=== PATIENT | male | born 1965 | race African-American/Black ===

== ENCOUNTER 2016-11-06 12:31 | Inpatient (IN) | payer MEDICAID, OTHER ==
[2016-11-06] VITALS (21 sets, daily range): BP systolic 98–154; BP diastolic 35–119
[~2016-11-06] VITALS: Ht 182.9 cm; Wt 86.2 kg
--- NOTE | 2016-11-06 12:45 | NUR ---
PATIENT BIB RA D/T WEAKNESS AND CONGESTION. PATIENT IS A/OX 0 AT BASELINE. 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 BREATHING ON NON REBREATHER MASK, 15L. SAFETY AND COMFORT MEASURES IN PLACE. AWAITING MD ORDERS.
--- NOTE | 2016-11-06 13:30 | NUR ---
IV ACCESS STARTED, BLOOD DRAWN FOR LABS, SENT.
[2016-11-06 13:35] LABS: BASOPHILS # (AUTO) 0.1 /CMM (0.0-0.2); BASOPHILS % (AUTO) 0.7 % (0.0-2.0); EOSINOPHILS # (AUTO) 0.1 /CMM (0.0-0.7); HEMATOCRIT 53 % (39-51); HEMOGLOBIN 16.8 g/dL (13.5-17.5); LYMPHOCYTES # (AUTO) 3.1 /CMM (0.8-4.8); LYMPHOCYTES % (AUTO) 32.7 % (20.0-44.0); MEAN CORPUSCULAR HEMOGLOBIN 29 PG (26.0-33.0); MEAN CORPUSCULAR HGB CONC 32 g/dl (31.0-36.0); MEAN CORPUSCULAR VOLUME 92 fL (80-96); MONOCYTES # (AUTO) 0.9 /CMM (0.1-1.30); MONOCYTES % (AUTO) 9.8 % (2.0-12.0); NEUTROPHILS # (AUTO) 5.3 /CMM (1.8-8.9); NEUTROPHILS % (AUTO) 55.8 % (43.0-81.0); PLATELET COUNT (AUTO) 178 /CMM (150-450); RDW COEFFICIENT OF VARIATION 13.8 (11.5-15.0); WHITE BLOOD COUNT (AUTO) 9.5 K/uL (4.3-11.0)
[2016-11-06 13:49] LABS: CALCIUM, SERUM 8.6 mg/dL (8.5-10.1); POTASSIUM 4.4 mmol/L (3.5-5.1)
--- NOTE | 2016-11-06 13:52 | NUR ---
CALLED DR FLORES OFFICE SPOKE WITH DR MADELINE WAS PAGED.
[2016-11-06 13:56] LABS: TROPONIN I 0.094 ng/mL (0.00-0.056)
[2016-11-06 14:00] LABS: INR 1.13 (0.87-1.13); PROTHROMBIN TIME 12.2 SECS (9.5-12.7)
[2016-11-06] MEDS ORDERED: ASPIRIN 300 MG/SUPP.RECT RC ONE ×2 (14:30→14:44)
--- NOTE | 2016-11-06 14:45 | NUR ---
NON-REBREATHER TAKEN OFF AND 5L O2 APPLIED VIA NC. WILL CONTINUE TO MONITOR.
--- NOTE | 2016-11-06 14:58 | NUR ---
PATIENT TAKEN TO CT
--- NOTE | 2016-11-06 15:06 | NUR ---
PATIENT RETURNED FROM CT. REMAINS STABLE.
--- NOTE | 2016-11-06 15:20 | NUR ---
CALLED DR GALLEGOS'S OFFICE, WAS PAGED.
--- NOTE | 2016-11-06 15:21 | NUR ---
RT AT BEDSIDE FOR ABG'S
[2016-11-06 15:26] LABS: ABG BASE EXCESS 2.3 mmol/L; ABG OXYGEN SATURATION 97.4 % (92.0-98.5); ABG PCO2 70.9 mmHg (35.0-45.0); ABG PH 7.273 (7.350-7.450); ABG PO2 102.9 mmHg (75.0-100.0); AaDO2 100.8 mmHg; COHb 0.6 % (0.5-1.5); MetHb 0.6 % (0.0-1.5); O2Hb 96.2 % (94.0-97.0); SITE, ABG Right Radial; VENT MODE, BG NASAL CANNULA
--- NOTE | 2016-11-06 15:29 | NUR ---
DR BERMUDEZ ON THE PHONE WITH DR GALLEGOS.
--- NOTE | 2016-11-06 15:35 | NUR ---
RT ABG RESULTS SHOWN TO DR. BERMUDEZ. PATIENT PLACED ON BiPAP WITH FOLLOWING SETTINGS: 20/5, BUR 20, 30%. PT SUCTIONED STOMA SITE SMALL AMOUNTS OF THICK, WHITE/ANSARI SECRETIONS. SpO2 94%, HR 84. AMBU BAG AT HEAD OF BED. PT REMAINS STABLE. WILL CONTINUE TO MONITOR THE PATIENT FOR ANY CHANGE OF CONDITION. Addendum: 11/06/16 at 1843 by KELTON MCCORMICK RT Amended: Links added.
--- NOTE | 2016-11-06 15:55 | NUR ---
PATIENT PLACED ON BIPAP AT THIS TIME, SETTING 20/5. O2 30%, RR 20. PATIENT ALSO PULLED OUT IV ON LEFT HAND. NEW IV STARTED ON RIGHT HAND, 20 G.
[2016-11-06] MEDS ORDERED: RANI150T12 PO ×2 (17:26)
[2016-11-06] MEDS ORDERED: OMEP20CA10 PO (17:26)
[2016-11-06] MEDS ORDERED: TYL2T PO (17:26)
[2016-11-06] MEDS ORDERED: BROM1.7D9 EACHEYE (17:26)
[2016-11-06] MEDS ORDERED: ACET325T53 PO (17:26)
[2016-11-06] MEDS ORDERED: LISI10TA59 PO (17:26)
[2016-11-06] MEDS ORDERED: CHOL200026 PO (17:26)
[2016-11-06] MEDS ORDERED: PRAV20TA PO (17:26)
[2016-11-06] MEDS ORDERED: ASPI81TA2 PO (17:26)
[2016-11-06] MEDS ORDERED: DOCU250C75 PO (17:26)
--- NOTE | 2016-11-06 17:27 | NUR ---
2ND IV INSERTED ON LEFT 4TH FINGER, 20 G.
[2016-11-06 17:29] LABS: ABG BASE EXCESS 0.1 mmol/L; ABG OXYGEN SATURATION 95.6 % (92.0-98.5); ABG PCO2 54.3 mmHg (35.0-45.0); ABG PH 7.322 (7.350-7.450); ABG PO2 82.9 mmHg (75.0-100.0); AaDO2 67.2 mmHg; COHb 0.6 % (0.5-1.5); MetHb 0.5 % (0.0-1.5); O2Hb 94.5 % (94.0-97.0); SITE, ABG Right Radial
--- NOTE | 2016-11-06 17:47 | NUR ---
ICU/RN- ADMITTED THIS 51 Y/O MALE FROM ER PER ACLS PROTOCOL. ROUTINE ICU ADMISSION CARE.NURSING FOCUS:ALTERED CARDIAC TISSUE PERFUSION AND ALTERED RESPIRATORY STATUS R/T DIAGNOSIS. PT. AWAKE, NON INTERACTIVE. IMMEDIATELY WAS PLACED ON BIPAP BY RT.
--- NOTE | 2016-11-06 18:40 | NUR ---
ICU/RN- DR. GALLEGOS NOTIFIED OF PT. ADMISSION W/ PHONE ORDERS. NOTED.
[2016-11-06] MEDS ORDERED: IPRATROPIUM NEB FS 0.5 MG/2.5 ML AMPUL.NEB NEB PRN (19:30)
[2016-11-06] MEDS ORDERED: ALBUTEROL FS 2.5 MG/0.5 ML VIAL.NEB NEB SCH ×2 (19:30)
--- NOTE | 2016-11-06 20:00 | NUR ---
ICU/RN- CONTINUE TO ASSUME CARE OF THIS PT. ON BIPAP, SATS.-100%. EKG SR, NO S/S OF DISTRESS OR PAIN USING FLACC PAIN SCALE.
[2016-11-06] MEDS: IPRATROPIUM NEB FS 0.5 MG/2.5 ML AMPUL.NEB NEB SCH ×2 (20:08→23:34)
[2016-11-06] MEDS: ALBUTEROL FS 2.5 MG/0.5 ML VIAL.NEB NEB SCH (20:08)
[2016-11-06] MEDS: IV 1/2NS 1000 ML 1,000 ML IV PRN (20:20)
[2016-11-06] MEDS: CEFTRIAXONE 1 G in IV D5W 50 ML IV SCH (20:21)
[2016-11-06] MEDS: AZITHROMYCIN 500 MG in IV D5W 250 ML IV SCH (21:02)
[2016-11-06] MEDS: ENOXAPARIN SODIUM 40 MG/0.4 ML DISP.SYRIN SQ SCH (21:12)
[2016-11-06] MEDS: ATORVASTATIN 10 MG TABLET PO SCH (22:00)
[2016-11-06] MEDS ORDERED: PRAVASTATIN SODIUM 20 MG TABLET PO SCH (22:00)
--- NOTE | 2016-11-06 22:07 | NUR ---
ICU/RN- SCHEDULED DOSE OF LIPITOR NOT GIVEN, PT. UNABLE TO SWALLOW, HEAD OF BED AT 60 DEGREES AT ALL TIMES,ASPIRATION PRECAUTIONS IN EFFECT. KEPT NPO FOR NOW. WILL NOTIFY MD IN AM.
[2016-11-06] MEDS ORDERED: PANTOPRAZOLE 40 MG VIAL ONE (22:20)
[2016-11-06] MEDS: PANTOPRAZOLE 40 MG VIAL IV SCH (22:21)
--- NOTE | 2016-11-06 22:30 | NUR ---
ICU/RN- REPORT GIVEN TO SALMA FITZPATRICK.
[2016-11-07] VITALS (53 sets, daily range): BP systolic 89–166; BP diastolic 37–104
[2016-11-07] MEDS: IPRATROPIUM NEB FS 0.5 MG/2.5 ML AMPUL.NEB NEB SCH ×6 (03:13→22:30)
[2016-11-07 04:57] LABS: EOSINOPHILS # (AUTO) 0.1 /CMM (0.0-0.7); EOSINOPHILS % (AUTO) 0.8 % (0.0-6.0); HEMATOCRIT 58 % (39-51); HEMOGLOBIN 18.1 g/dL (13.5-17.5); LYMPHOCYTES # (AUTO) 2.6 /CMM (0.8-4.8); LYMPHOCYTES % (AUTO) 42.1 % (20.0-44.0); MEAN CORPUSCULAR HEMOGLOBIN 29 PG (26.0-33.0); MEAN CORPUSCULAR HGB CONC 31 g/dl (31.0-36.0); MEAN CORPUSCULAR VOLUME 92 fL (80-96); MONOCYTES # (AUTO) 0.7 /CMM (0.1-1.30); MONOCYTES % (AUTO) 11.2 % (2.0-12.0); NEUTROPHILS # (AUTO) 2.9 /CMM (1.8-8.9); NEUTROPHILS % (AUTO) 45.9 % (43.0-81.0); PLATELET COUNT (AUTO) 153 /CMM (150-450); RDW COEFFICIENT OF VARIATION 13.3 (11.5-15.0); RED BLOOD CELL COUNT(AUTO) 6.27 MIL/uL (4.5-6.0); WHITE BLOOD COUNT (AUTO) 6.3 K/uL (4.3-11.0)
[2016-11-07 05:07] LABS: CALCIUM, SERUM 8.9 mg/dL (8.5-10.1); POTASSIUM 4.7 mmol/L (3.5-5.1)
[2016-11-07 06:51] LABS: EOSINOPHILS % (MANUAL) 1 % (0-4); LYMPHOCYTES % (MANUAL) 44 % (16-48); MONOCYTES % (MANUAL) 13 % (0-11.0); NEUTROPHILS % (MANUAL) 42 (42-76)
--- NOTE | 2016-11-07 08:00 | NUR ---
ICU/RN INITIAL NOTES,AM RECEIVED REPORT FROM NIGHT NURSE. PT OPES EYES, FOLLOWS SIMPLE COMMANDS. ON BIPAP, SETTINGS PER MD. NO ACUTE DISTRESS NOTED AT THIS TIME. PT MAINTAINING 02 SAT >95%. PT ON TELE, SINUS. CURRENTLY NPO, NO GTUBE PER MD. PIV'S PATENT AND INTACT. NO S/S OF INFECTION OR INFILTRATION NOTED. IV FLUIDS INFUSING ORDERED. PT TURNED AND REPOSITIONED. ALL NEEDS WILL BE ATTENDED TO, BED IN LOW POSITION, SIDE RAILS UP, CALL LIGHT WITHIN REACH.
[2016-11-07] MEDS: ALBUTEROL FS 2.5 MG/0.5 ML VIAL.NEB NEB SCH ×4 (08:08→19:37)
[2016-11-07] MEDS: ASPIRIN 81 MG TAB.CHEW PO SCH (08:58)
--- NOTE | 2016-11-07 09:00 | NUR ---
ICU/RN: PT OFF BIPAP, ON 5LITERS NASAL CANULA TOLERATING WELL. WILL CONTINUE TO MONITOR
--- NOTE | 2016-11-07 13:00 | NUR ---
ICU/RN: AT BEDSIDE FOR ASSESSMENT. ABG ORDERED FOR PT OFF BIPAP. INFORMED MD OF COOLING MEASURES FOR TEMP OF 99.5. PER MD WE ARE NOT TO GIVE TYLENOL AT THIS TIME. WILL CONTINUE CARE.
[2016-11-07 13:06] LABS: ABG BASE EXCESS 5.3 mmol/L; ABG OXYGEN SATURATION 94.6 % (92.0-98.5); ABG PCO2 63.3 mmHg (35.0-45.0); ABG PH 7.343 (7.350-7.450); ABG PO2 77.6 mmHg (75.0-100.0); AaDO2 98.4 mmHg; COHb 1.3 % (0.5-1.5); MetHb 0.8 % (0.0-1.5); O2Hb 92.6 % (94.0-97.0); SITE, ABG Right Radial; VENT MODE, BG BIPAP 20/5
[2016-11-07 13:37] LABS: ABG BASE EXCESS 1.8 mmol/L; ABG OXYGEN SATURATION 96.1 % (92.0-98.5); ABG PH 7.296 (7.350-7.450); ABG PO2 88.6 mmHg (75.0-100.0); AaDO2 64.7 mmHg; COHb 1.2 % (0.5-1.5); MetHb 0.8 % (0.0-1.5); O2Hb 94.2 % (94.0-97.0); SITE, ABG Right Radial; VENT MODE, BG 3LPM VIA N/C
[2016-11-07] MEDS: IV 1/2NS 1000 ML 1,000 ML IV PRN (15:14)
--- NOTE | 2016-11-07 15:47 | NUR ---
BIPAP RESUMED POST ABG RESULTS Addendum: 11/07/16 at 1549 by YAZMIN PETIT RT Amended: Links added.
--- NOTE | 2016-11-07 16:00 | NUR ---
ICU/RN: PT PLACED BACK ON BIPAP WITH SETTINGS ORDERED PER MD. NO ACUTE DISTRESS. WILL CONTINUE TO MONITOR.
--- NOTE | 2016-11-07 18:28 | NUR ---
ICU/RN: ENDING NOTES,AM REPORT WILL BE ENDORSED TO NIGHT NURSE FOR CONTINUATION OF CARE. PT ON BIPAP, NO DISTRESS. SAFETY MEASURES TAKEN, BED IN LOW POSITION, SIDE RAILS UP, CALL LIGHT WITHIN REACH.
[2016-11-07] MEDS: CEFTRIAXONE 1 G in IV D5W 50 ML IV SCH (19:51)
--- NOTE | 2016-11-07 20:00 | NUR ---
CHASSIS INSPECTOR - NOTES - RECEIVED PT OPEN EYES, FOLLOWS SIMPLE COMMANDS. ON BIPAP, SETTINGS PER MD. NO ACUTE DISTRESS NOTED AT THIS TIME. PT MAINTAINING 02 SAT >95%. PT ON TELE, SINUS. CURRENTLY NPO, NO GTUBE PER MD. PIV'S PATENT AND INTACT. NO S/S OF INFECTION OR INFILTRATION NOTED. IV FLUIDS INFUSING ORDERED. PT TURNED AND REPOSITIONED. ALL NEEDS WILL BE ATTENDED TO, BED IN LOW POSITION, SIDE RAILS UP, CALL LIGHT WITHIN REACH.
--- NOTE | 2016-11-07 21:00 | NUR ---
agricultural equipment test engineer. report given to roya reynoso.
[2016-11-07] MEDS: AZITHROMYCIN 500 MG in IV D5W 250 ML IV SCH (21:16)
[2016-11-07] MEDS: ATORVASTATIN 10 MG TABLET PO SCH (21:17)
[2016-11-07] MEDS: ENOXAPARIN SODIUM 40 MG/0.4 ML DISP.SYRIN SQ SCH (21:17)
[2016-11-07] MEDS: PANTOPRAZOLE 40 MG VIAL IV SCH (22:29)
[2016-11-08] VITALS (41 sets, daily range): BP systolic 108–154; BP diastolic 60–99
[2016-11-08] MEDS: IPRATROPIUM NEB FS 0.5 MG/2.5 ML AMPUL.NEB NEB SCH ×6 (03:06→22:51)
--- NOTE | 2016-11-08 04:00 | NUR ---
BED BATH GIVEN, ALL LINENS CHANGED, NO BM, URINATED
--- NOTE | 2016-11-08 07:30 | NUR ---
PROCESS TANK TENDER RECEIVED PATIENT AWAKE ON BIPAP MAINTAINED ON BIPAP PER MD ORAL MEDICATION GIVEN, ASPIRATION PRECAUTION OBSERVED MONITORED ACCORDINGLY SEEN AND EXAMINED BY DR SUBRAMANIAN
[2016-11-08] MEDS: ALBUTEROL FS 2.5 MG/0.5 ML VIAL.NEB NEB SCH ×4 (07:52→19:51)
[2016-11-08] MEDS: ASPIRIN 81 MG TAB.CHEW PO SCH (09:23)
[2016-11-08] MEDS: IV 1/2NS 1000 ML 1,000 ML IV PRN (09:55)
[2016-11-08 11:50] LABS: ABG PCO2 60.4 mmHg (35.0-45.0); ABG PH 7.304 (7.350-7.450); ABG PO2 66.8 mmHg (75.0-100.0); AaDO2 76.1 mmHg; COHb 1.2 % (0.5-1.5); MetHb 0.7 % (0.0-1.5); O2Hb 90.3 % (94.0-97.0); SITE, ABG Right Radial; VENT MODE, BG BIPAP 20/5
[2016-11-08] MEDS: LACTOBACILLUS RHAMNOSUS GG 1 EACH CAP.SPRINK PO SCH (16:38)
[2016-11-08] MEDS: CEFTRIAXONE 1 G in IV D5W 50 ML IV SCH (18:54)
[2016-11-08] MEDS ORDERED: ALBUTEROL FS 2.5 MG/0.5 ML VIAL.NEB ONE (19:50)
[2016-11-08] MEDS: ATORVASTATIN 10 MG TABLET PO SCH (21:04)
[2016-11-08] MEDS: MUPIROCIN OINT 2% 22 GM TUBE SCH (21:04)
[2016-11-08] MEDS: AZITHROMYCIN 500 MG in IV D5W 250 ML IV SCH (21:04)
[2016-11-08] MEDS: ENOXAPARIN SODIUM 40 MG/0.4 ML DISP.SYRIN SQ SCH (21:05)
[2016-11-08] MEDS: PANTOPRAZOLE 40 MG VIAL IV SCH (22:59)
[2016-11-09] VITALS (30 sets, daily range): BP systolic 109–173; BP diastolic 43–123
--- NOTE | 2016-11-09 01:03 | NUR ---
RN:ICU: ATTEMPTED TO REMOVE LEFT ARM RESTRAINT BUT PATIENT BEGAN THRASHING ARM AROUND AND REMOVING BIPAP TUBING. PT REEDUCATED WITH OUT SUCCESS. LEFT ARM SOFT WRIST RESTRAINT REAPPLIED. WILL CONTINUE TO MONITOR CLOSELY.
[2016-11-09] MEDS: IPRATROPIUM NEB FS 0.5 MG/2.5 ML AMPUL.NEB NEB SCH ×6 (03:15→23:20)
[2016-11-09] MEDS: IV 1/2NS 1000 ML 1,000 ML IV PRN ×2 (03:33→18:26)
[2016-11-09] MEDS: ALBUTEROL FS 2.5 MG/0.5 ML VIAL.NEB NEB SCH ×4 (07:30→19:48)
--- NOTE | 2016-11-09 07:35 | NUR ---
SEWER PIPE OFFBEARER NOTE RECEIVED PT OPEN EYES, ON BIPAP, SETTINGS PER MD. NO ACUTE DISTRESS NOTED AT THIS TIME. PT MAINTAINING 02 SAT >95%. PT ON TELE,SR HR 75. CURRENTLY NPO, NO GTUBE PER MD. RT UA MID LINE AND RT HAND AND LT HAND IV HEPLOCK PATENT AND INTACT. NO S/S OF INFECTION OR INFILTRATION NOTED. IV FLUIDS INFUSING ORDERED. PT TURNED AND REPOSITIONED. ALL NEEDS WILL BE ATTENDED TO, BED IN LOWEST AND LOCKED POSITION, SIDE RAILS UP, CALL LIGHT WITHIN REACH. WITH SOFT RESTRAIN ORDERED ON LT HAND ORDERED TO PREVENT SELF INJURY AND POOLING ALL LINES, RT AT BEDSIDE DOING ABG, WILL CONT TO MONITOR CLOSELY
[2016-11-09 08:36] LABS: ABG BASE EXCESS 1.8 mmol/L; ABG OXYGEN SATURATION 93.8 % (92.0-98.5); ABG PCO2 51.4 mmHg (35.0-45.0); ABG PH 7.362 (7.350-7.450); ABG PO2 69.6 mmHg (75.0-100.0); AaDO2 83.9 mmHg; COHb 1.1 % (0.5-1.5); MetHb 0.9 % (0.0-1.5); O2Hb 91.9 % (94.0-97.0); SITE, ABG Left Radial; VENT MODE, BG IPAP 20/EPAP 5
[2016-11-09] MEDS: LACTOBACILLUS RHAMNOSUS GG 1 EACH CAP.SPRINK PO SCH ×2 (09:00→17:11)
[2016-11-09] MEDS: ASPIRIN 81 MG TAB.CHEW PO SCH (09:00)
[2016-11-09] MEDS: MUPIROCIN OINT 2% 22 GM TUBE SCH (09:11)
--- NOTE | 2016-11-09 09:40 | NUR ---
REHABILITATION SERVICES AIDE NOTE ABG DONE , HOLD ASA AND OTHER PO MEDS AT THIS TIME ON BIPAP , PER DR GALLEGOS NOTES OK TO HOLD PO MEDS AT THIS TIME , WILL CONT TO MONITOR CLOSELY
--- NOTE | 2016-11-09 11:25 | NUR ---
SOCK KNITTER NOTE SEEN BY DR SUBRAMANIAN YOUTH LIAISON OFFICER AWARE OF ABG RESULT , STATED TO CONT TO MONITOR CLOSELY ,SIGHTLY IMPROVING .
--- NOTE | 2016-11-09 13:09 | NUR ---
placed on 3 lpm o2 flow via nasal cannula per md order Addendum: 11/09/16 at 1309 by ANTOLIN LEE RT Amended: Links added.
--- NOTE | 2016-11-09 13:27 | NUR ---
SAMPLE PASTER NOTE SEEN BY RT ,CHANGED TO 3 L NC NO SOB AT THIS TIME ,SAT 98% , WILL CONT TO MONITOR CLOSELY .DR GALLEGOS AT BEDSIDE, AWARE OF PATIENT CONDITION ,AWAITING FOR ENT IN AM
[2016-11-09] MEDS ORDERED: FIBERSOURCE HN 1,000 ML BOTTLE GT PRN (16:30)
[2016-11-09 16:42] LABS: ABG BASE EXCESS -0.2 mmol/L; ABG OXYGEN SATURATION 97.6 % (92.0-98.5); ABG PH 7.377 (7.350-7.450); ABG PO2 103.8 mmHg (75.0-100.0); AaDO2 51.2 mmHg; COHb 1.1 % (0.5-1.5); MetHb 0.8 % (0.0-1.5); O2Hb 95.7 % (94.0-97.0); SITE, ABG Right Radial; VENT MODE, BG NASAL CANNULA
--- NOTE | 2016-11-09 16:59 | NUR ---
STRATIGRAPHY TEACHER NOTE NG TUBE PLACED ORDERED ON LT NOSTRIL, WILL START G TUBE FEEDING AND MEDS ORDERED BY DR GALLEGOS
--- NOTE | 2016-11-09 17:16 | NUR ---
CRUISE COUNSELOR NOTE MEDS START TO GIVE VIA B G TUB PLACEMENT , PLACEMENT VERIFIED BY 2 NURSES, WITH RUSHING AIR UPON AUSCULTATION , KEEP HOB ELEVATED AT ALL TIME
--- NOTE | 2016-11-09 18:29 | NUR ---
BLOOD BANK CALENDAR CONTROL CLERK NOTE PER RT ON O2 VIA NC 2L SAT 98% , NO SOB NOTED, WILL CONT TO MONITOR CLOSELY
--- NOTE | 2016-11-09 20:00 | NUR ---
Received patient awake non verbal not following commands with Left soft wrist restraints in place to prevent pulling out tubes and IVF.SR per monitor.VS stable.With O2 2L NC in progress.No distress noted.Respiration even and unlabored.SPO2 100%.Tube feeding in progress via Left nares NGT. Placement verified.No residual noted.HOB elevated.IVF infusing to JESUSITA Midline.Site intact.Turned and repositioned.Contact isolation precaution for MRSA nares maintained.
[2016-11-09] MEDS: CEFTRIAXONE 1 G in IV D5W 50 ML IV SCH (20:06)
[2016-11-09] MEDS: AZITHROMYCIN 250 MG TABLET PO SCH (21:13)
[2016-11-09] MEDS: ENOXAPARIN SODIUM 40 MG/0.4 ML DISP.SYRIN SQ SCH (21:14)
[2016-11-09] MEDS: PANTOPRAZOLE 40 MG VIAL IV SCH (22:04)
[2016-11-09] MEDS: ATORVASTATIN 10 MG TABLET PO SCH (22:04)
[2016-11-10] VITALS (26 sets, daily range): BP systolic 53–164; BP diastolic 28–101
[2016-11-10] MEDS: IPRATROPIUM NEB FS 0.5 MG/2.5 ML AMPUL.NEB NEB SCH ×6 (03:04→23:33)
--- NOTE | 2016-11-10 03:19 | NUR ---
RT PT CURRENTLY ON 2L NC MAINTAINING GOOD SATURATIONS. BIPAP ON STAND BY. PT SHOWS NO SINGS OF RESP DISTRESS OR SOB. WILL CONTINUE TO MONITOR.
--- NOTE | 2016-11-10 06:35 | NUR ---
Patient resting.VS stable.AM care done.No significant change noted during the shift. Patient tolerating O2 NC at 2L sating 96%-100%.Tolerating feeding.Turned and repositioned.
[2016-11-10] MEDS: ALBUTEROL FS 2.5 MG/0.5 ML VIAL.NEB NEB SCH ×4 (07:35→19:40)
--- NOTE | 2016-11-10 07:37 | NUR ---
INITIAL COMPUTER SECURITY COORDINATOR NOTE RCVD PT WITH EYES OPEN, ABLE TO FOLLOW SIMPLE COMMANDS, SR ON TELE. TOLERATING O2 VIA NC. DRESSING OBSERVED OVER STOMA AREA. LEFT WRIST RESTRAINT IN PLACE. CIRCULATION CHECKS PERFORMED. NG TUBE LEFT NARE, PLACEMENT VERIFIED BY AUSCULTATION/ASPIRATION. TOLERATING TUBE FEEDING RATE. 10ML RESIDUAL OBSERVED. IV SITES C/D/I/PATENT. NO S/O INFILTRATION OR PHLEBITIS OBSERVED. IVF INFUSING. WILL CONTINUE TO MONITOR PT FOR SAFETY AND COMFORT. CALL LIGHT WITHIN REACH. BED IN LOW AND LOCKED POSITION.
[2016-11-10 10:50] LABS: ABG BASE EXCESS 3.5 mmol/L; ABG OXYGEN SATURATION 91.2 % (92.0-98.5); ABG PCO2 42.8 mmHg (35.0-45.0); ABG PH 7.437 (7.350-7.450); ABG PO2 56.7 mmHg (75.0-100.0); AaDO2 41.8 mmHg; COHb 1.5 % (0.5-1.5); MetHb 0.6 % (0.0-1.5); O2Hb 89.3 % (94.0-97.0); SITE, ABG Right Radial
[2016-11-10] MEDS: IV 1/2NS 1000 ML 1,000 ML IV PRN (11:28)
[2016-11-10] MEDS: ASPIRIN 81 MG TAB.CHEW PO SCH (11:29)
[2016-11-10] MEDS: LACTOBACILLUS RHAMNOSUS GG 1 EACH CAP.SPRINK PO SCH ×2 (11:29→17:00)
--- NOTE | 2016-11-10 14:40 | NUR ---
GAS METER INSTALLER NOTE DR. GALLEGOS AT BEDSIDE INFORMED HIM OF DIETITIAN RECOMMENDATION TO INCREASE TUBE FEEDING RATE TO 70 ML/HR AND ADD MVT, VIT C TO PT'S MED REGIMEN. AGREES WITH RECOMMENDATION TO INCREASE TUBE FEEDING RATE, BUT DISAGREES TO ADD MVT AND VITC FOR THIS PT.
[2016-11-10] MEDS: FIBERSOURCE HN 1,000 ML BOTTLE GT PRN (17:39)
--- NOTE | 2016-11-10 18:14 | NUR ---
ENDING BLOW UP OPERATOR NOTE PT REMAINS STABLE, SHOWING NO S/O DISTRESS OR PAIN. THICK SECRETIONS NOTED OVER STOMA AREA, SR ON TELE. JESUSITA MIDLINE C/D/I/PATENT. NO S/O INFILTRATION/PHLEBITIS OBSERVED. IVF INFUSING. TUBE FEEDING RATE INCREASED TO 50ML/HR, RESIDUAL OF 45 ML OBTAINED. HOB ELEVATED. LEFT WRIST RESTRAINT REMAINS IN PLACE. PT'S CARE WILL BE ENDORSED TO MOTHER SUPERIOR RN FOR CONTINUITY OF CARE. BED IN LOW AND LOCKED POSITION.
--- NOTE | 2016-11-10 18:14 | NUR ---
TELEPHONE BETTING CLERK NOTE PER PHARMACY NO CULTURELLE IN STOCK, UNABLE TO ADMINISTER MEDICATION.
[2016-11-10] MEDS ORDERED: Z GUARD REMEDY 2 OZ OINT TP PRN (19:00)
--- NOTE | 2016-11-10 20:00 | NUR ---
received pt from day shift, alert, follows simple commands at times, SR, RA, lungs partially congested, some non pitting edema BL feet, NG to feeding, no residual, diaper on, L hand restraint, v/s stable, no pain, pt turned and repositioned.
[2016-11-10] MEDS: CEFTRIAXONE 1 G in IV D5W 50 ML IV SCH (20:41)
[2016-11-10] MEDS: PANTOPRAZOLE 40 MG VIAL IV SCH (21:10)
[2016-11-10] MEDS: ATORVASTATIN 10 MG TABLET PO SCH (21:10)
[2016-11-10] MEDS: AZITHROMYCIN 250 MG TABLET PO SCH (21:11)
[2016-11-10] MEDS: ENOXAPARIN SODIUM 40 MG/0.4 ML DISP.SYRIN SQ SCH (21:14)
[2016-11-11] VITALS (25 sets, daily range): BP systolic 56–154; BP diastolic 20–107
--- NOTE | 2016-11-11 00:44 | NUR ---
pt is resting in the bed, v/s stable, no pain, pt turned and repositioned q2hrs.
[2016-11-11] MEDS: IV 1/2NS 1000 ML 1,000 ML IV PRN (03:30)
[2016-11-11] MEDS: IPRATROPIUM NEB FS 0.5 MG/2.5 ML AMPUL.NEB NEB SCH ×6 (04:00→23:07)
--- NOTE | 2016-11-11 04:37 | NUR ---
pt is resting in the bed, no acute distress overnight, v/s stable, no pain, pt cleaned, changed and repositioned q2hrs.
[2016-11-11] MEDS: ALBUTEROL FS 2.5 MG/0.5 ML VIAL.NEB NEB SCH ×4 (07:35→19:55)
--- NOTE | 2016-11-11 07:37 | NUR ---
INITIAL BOTANY TECHNICIAN NOTE RCVD PT AWAKE AND ALERT TO SELF, SHOWING NO S/O DISTRESS OR C/O PAIN AT THIS TIME. SR ON TELE WITH OCCASIONAL PACs. STOMA REMAINS OPEN WITH COPIOUS THICK SECRETIONS. VOIDING TO DIAPER. LEFT WRIST RESTRAINT IN PLACE, CIRCULATION CHECKS PERFORMED. JESUSITA MIDLINE C/D/I/PATENT. NO S/O INFILTRATION/PHLEBITIS OBSERVED. IVF INFUSING.NG TUBE PLACEMENT VERIFIED BY AUSCULTATION/ASPIRATION, TOLERATING ORDERED TUBE FEEDING RATE INCREASED TO GOAL OF 70ML/HR THIS AM. NO RESIDUAL OBTAINED. WILL CONTINUE TO MONITOR PT FOR SAFETY AND COMFORT. CALL LIGHT WITHIN REACH. BED IN LOW AND LOCKED POSITION.
--- NOTE | 2016-11-11 08:42 | NUR ---
FLIGHT TEST MECHANIC RN CALLED DR. JULIEN OFFICE. RN SPOKE TO LUDWIG. RN INFORMED LUDWIG ABOUT THE NEW CONSULT FOR DR. HOROWITZ FOR TRACH PLACEMENT. RN INFORMED LUDWIG THAT PATIENT'S STOMA IS OPEN AND PATIENT IS CURRENTLY ON ROOM AIR. OFFICE NUMBER: [phone].
[2016-11-11] MEDS: LACTOBACILLUS RHAMNOSUS GG 1 EACH CAP.SPRINK PO SCH ×2 (09:00→17:43)
[2016-11-11] MEDS: ASPIRIN 81 MG TAB.CHEW PO SCH (09:21)
--- NOTE | 2016-11-11 09:23 | NUR ---
MAT PUNCHER NOTE NO CULTURELLE AVAILABLE TO ADMINISTER. PHARMACY AWARE.
--- NOTE | 2016-11-11 11:16 | NUR ---
WOUND CARE CONSULT PATIENT SEEN AND SKIN INTEGRITY ASSESSMENT DONE. PATIENT WITH LAVELL AT 11. PATIENT ON ISOFLEX ASIA SPECIALTY BED FOR SKIN MANAGEMENT. PATIENT PRESENTS WITH SEVERELY DRY SKIN TO FEET AND HEELS, RECOMMEND ATRACTAIN CREAM DAILY. PATIENT PRESENTS WITH STAGE 3 PRESSURE ULCER TO THE RIGHT LATERAL FOOT. TREATMENT PLAN DISCUSSED WITH MD AND MD IN AGREEMENT. CONTINUE USE OF Z GUARD FOR SKIN MANAGEMENT AND MOISTURE MANAGEMENT. ALL DISCUSSED WITH NURSING AT THE BEDSIDE. ALL SKIN MANAGEMENT AND PREVENTION MEASURES NOTED TO BE IN PLACE, MD IN AGREEMENT WITH PLAN OF CARE. Addendum: 11/11/16 at 1119 by KATJA LAGUERRE WNDNU Amended: Links added.
[2016-11-11] MEDS ORDERED: HYDROGEL DRESSING 90 GM TUBE TP PRN (11:30)
--- NOTE | 2016-11-11 13:22 | NUR ---
CABINET WORKER NOTE PT'S LEFT HAND GOT LOOSE, PT WAS ABLE TO PULL NG TUBE. TUBE WAS PUSHED BACK IN PLACE BY SALMA NATARAJAN. PLACEMENT VERIFIED BY CHEST XRAY. ONCE RESULTS WERE POSTED. TUBE FEEDING WAS RESUMED.
[2016-11-11] MEDS: HYDROGEL DRESSING 90 GM TUBE TP SCH (14:20)
[2016-11-11] MEDS: UREA 10% -AHA 4% CREAM 57 GM TUBE TP SCH (14:20)
[2016-11-11] MEDS: FIBERSOURCE HN 1,000 ML BOTTLE GT PRN (17:51)
--- NOTE | 2016-11-11 19:11 | NUR ---
ENDING NET MANAGER NOTE PT REMAINS STABLE SHOWING NO S/O DISTRESS. PER ROSA ISELA, RETORT OPERATOR DR. HOROWITZ WILL COME CANNULATE PT THIS EVENING. REQUESTED SUPPLIES AT BEDSIDE. DR. GALLEGOS CAME TO ASSESS PT RECOMMENDED TO D/C IVF, AND ORDERED LABS FOR THE AM. ORDERS ENTERED. HE WANTS PT TO BE EVALUATED BY GRETCHEN ARREGUIN. CHANNEL BUSINESS MANAGERCHARGE OPERATOR PLACED. PT REMOVED NGTUBE AGAIN. NGTUBE WAS PLACED BACK AND PLACEMENT WAS CHECKED BY 2RNs AT BEDSIDE. PT'S CARE WILL BE ENDORSED TO SPECIAL NEEDS LIBRARIAN RN FOR CONTINUITY OF CARE. BED IN LOW AND LOCKED POSITION.
--- NOTE | 2016-11-11 19:47 | NUR ---
HUMAN RESOURCE ADVISOR, RECEIVED THE PT REST ON THE BED. AWAKE, ALERT. NONVERBAL. MORE SECRETION COMING FROM OLD TRACH STOMA . PT ON ROOM AIR. RT NARE NGT INTACT. FOBER SOURCE 70ML/H. RT UPPER ARM MID LINE. TKO RUNNING, HOB ELEVATED. WILL CONTINUE TO MONITOR VITALS.
--- NOTE | 2016-11-11 19:51 | NUR ---
SENIOR MARKETING MANAGER. DR HOROWITZ AT BED SIDE PLACED NEW TRACH VIA OLD STOMA. DURING PLACEMENT NO COMPLICATION NOTED. PORTEX#9, OXYGEN T PICE 28%, 5L./H, WILL CONTINUE TO MONITOR VITALS.
--- NOTE | 2016-11-11 20:31 | NUR ---
@1935 DR HOROWITZ INSERTED PORTEX 7 TRACH ON PT IN AN OLD OPEN STOMA. PLACED ON CA 28%. SX'D FOR MOD AMT OF THICK YELLOW/RED SECRETIONS.
[2016-11-11] MEDS: CEFTRIAXONE 1 G in IV D5W 50 ML IV SCH (20:44)
--- NOTE | 2016-11-11 21:30 | NUR ---
PREFABRICATOR INITIAL NOTE RECEIVED REPORT FROM SUSY MARSH. PT IN BED. A/O NON VERBAL, FOLLOWS COMMANDS. LEFT ARM RESTRAINED FOR SAFETY. DR RYAN PLACED A PORTEX 9 IN STOMA, TPIECE 5L 28%. LEFT NARE NGT INTACT, NO RESIDUAL. LUNG SOUNDS RHONCHI. BOWEL SOUNDS PRESENT. RIGHT UPPER ARM MIDLINE INTACT. BED IN LOW LOCKED POSITION. WILL CONTINUE TO MONITOR.
[2016-11-11] MEDS: ATORVASTATIN 10 MG TABLET PO SCH (21:33)
[2016-11-11] MEDS: PANTOPRAZOLE 40 MG VIAL IV SCH (21:33)
[2016-11-11] MEDS: ENOXAPARIN SODIUM 40 MG/0.4 ML DISP.SYRIN SQ SCH (21:34)
[2016-11-11] MEDS: AZITHROMYCIN 250 MG TABLET PO SCH (21:34)
--- NOTE | 2016-11-11 21:39 | NUR ---
report given to devante reynoso
[2016-11-12] VITALS (25 sets, daily range): BP systolic 117–161; BP diastolic 51–104
[2016-11-12] MEDS: IPRATROPIUM NEB FS 0.5 MG/2.5 ML AMPUL.NEB NEB SCH ×6 (03:16→23:51)
[2016-11-12 04:34] LABS: EOSINOPHILS # (AUTO) 0.1 /CMM (0.0-0.7); EOSINOPHILS % (AUTO) 0.7 % (0.0-6.0); HEMATOCRIT 51 % (39-51); HEMOGLOBIN 16.2 g/dL (13.5-17.5); LYMPHOCYTES # (AUTO) 1.8 /CMM (0.8-4.8); LYMPHOCYTES % (AUTO) 22.8 % (20.0-44.0); MEAN CORPUSCULAR HEMOGLOBIN 29 PG (26.0-33.0); MEAN CORPUSCULAR HGB CONC 32 g/dl (31.0-36.0); MEAN CORPUSCULAR VOLUME 90 fL (80-96); MONOCYTES # (AUTO) 0.7 /CMM (0.1-1.30); MONOCYTES % (AUTO) 8.7 % (2.0-12.0); NEUTROPHILS # (AUTO) 5.5 /CMM (1.8-8.9); NEUTROPHILS % (AUTO) 67.8 % (43.0-81.0); PLATELET COUNT (AUTO) 195 /CMM (150-450); RDW COEFFICIENT OF VARIATION 13.1 (11.5-15.0); RED BLOOD CELL COUNT(AUTO) 5.61 MIL/uL (4.5-6.0); WHITE BLOOD COUNT (AUTO) 8.1 K/uL (4.3-11.0)
[2016-11-12 04:48] LABS: CALCIUM, SERUM 8.6 mg/dL (8.5-10.1); CREATININE 0.8 mg/dL (0.6-1.3); MAGNESIUM 2.1 mg/dL (1.8-2.4); PHOSPHORUS 2.6 mg/dL (2.5-4.9); POTASSIUM 3.8 mmol/L (3.5-5.1)
--- NOTE | 2016-11-12 07:30 | NUR ---
ICU/RN: PT RECEIVED ON T-PIECE 5L AT 38% COOL AEROSOL, TOLERATING WELL. BREATHING EVEN AND UNLABORED, AIRWAY CLEARED OF SECRETIONS. RESTRAINT CARE ON L ARM RENDERED, PT ATTEMPTS TO PULL LINES NECESSARY FOR TX. REAPPLIED. ORAL CARE RENDERED, HOB ELEVATED. SAFETY MEASURES IN PLACE. WILL CONT TO MONITOR PT.
[2016-11-12] MEDS: ALBUTEROL FS 2.5 MG/0.5 ML VIAL.NEB NEB SCH ×4 (07:45→19:54)
[2016-11-12] MEDS: LACTOBACILLUS RHAMNOSUS GG 1 EACH CAP.SPRINK PO SCH ×2 (08:59→16:32)
[2016-11-12] MEDS: HYDROGEL DRESSING 90 GM TUBE TP SCH (09:00)
[2016-11-12] MEDS: ASPIRIN 81 MG TAB.CHEW PO SCH (09:00)
--- NOTE | 2016-11-12 09:00 | NUR ---
ICU/RN: DUE MEDS ADMINISTERED. PT REQUIRES FREQUENT ORAL AND TRACHEAL SUCTIONING; SUCTIONED LARGE AMOUNT OF THIN CLEAR SECRETIONS. NO BLEEDING NOTED AROUND TRACHEAL SITE.
[2016-11-12] MEDS: UREA 10% -AHA 4% CREAM 57 GM TUBE TP SCH (09:06)
--- NOTE | 2016-11-12 15:45 | NUR ---
ICU/RN: WOUND CARE, BED BATH RENDERED. TOLERATED WELL.
[2016-11-12] MEDS: FIBERSOURCE HN 1,000 ML BOTTLE GT PRN (15:47)
--- NOTE | 2016-11-12 19:12 | NUR ---
ICU/RN: PT RESTING IN BED, NO DISTRESS NOTED, BREATHING EVEN AND UNLABORED. AWAITING [facility] BED. CARE ENDORSED TO PM RN FOR CLAUDIA.
[2016-11-12] MEDS: CEFTRIAXONE 1 G in IV D5W 50 ML IV SCH (20:01)
--- NOTE | 2016-11-12 20:26 | NUR ---
received pt from day shift, alert, does not follow commands, SR, on T piece at 5L 28% fio2, sat well, lungs partially congested, no edema, NG to feeding low residual, diaper on, L hand restraint on, v/s stable, no pain, pt turned and repositioned.
[2016-11-12] MEDS: ENOXAPARIN SODIUM 40 MG/0.4 ML DISP.SYRIN SQ SCH (20:51)
[2016-11-12] MEDS: AZITHROMYCIN 250 MG TABLET PO SCH (20:52)
[2016-11-12] MEDS: ATORVASTATIN 10 MG TABLET PO SCH (21:27)
[2016-11-12] MEDS: PANTOPRAZOLE 40 MG VIAL IV SCH (21:30)
[2016-11-13] VITALS (15 sets, daily range): BP systolic 112–145; BP diastolic 69–109
--- NOTE | 2016-11-13 00:20 | NUR ---
pt is resting in the bed, v/s stable, no pain, pt turned and repositioned q2hrs.
[2016-11-13] MEDS: IPRATROPIUM NEB FS 0.5 MG/2.5 ML AMPUL.NEB NEB SCH ×6 (03:42→23:45)
--- NOTE | 2016-11-13 04:22 | NUR ---
pt is resting in the bed, no acute distress overnight, tolerates feeding well, v/s stable, no pain, pt cleaned, changed and repositioned q2hrs.
[2016-11-13] MEDS: ALBUTEROL FS 2.5 MG/0.5 ML VIAL.NEB NEB SCH ×4 (07:22→19:31)
--- NOTE | 2016-11-13 08:10 | NUR ---
OUTBOUND CALL CENTER REPRESENTATIVE: pt.is obtunded, able to open eyes, rest, unable to follow commands, L.wrist soft restraint, SR/ST 110, O2sat .WNL on Tp 8L 35%, NGTF residual WNL, no f/c order per
[2016-11-13] MEDS: ASPIRIN 81 MG TAB.CHEW PO SCH (09:38)
[2016-11-13] MEDS: LACTOBACILLUS RHAMNOSUS GG 1 EACH CAP.SPRINK PO SCH ×2 (09:38→16:32)
[2016-11-13] MEDS: HYDROGEL DRESSING 90 GM TUBE TP SCH (09:39)
[2016-11-13] MEDS: UREA 10% -AHA 4% CREAM 57 GM TUBE TP SCH (09:39)
--- NOTE | 2016-11-13 09:48 | NUR ---
STRUCTURAL MANAGER: is in room, updated with pt.current condition, VS, O2sat. on 8L 35% O2 via T piece, suction amount, said: ok to transfer to [facility]. DT evaluated pt., recommended: start multivitamins 1 tab daily, will s/w or endorse next nurse to ask MD for order
--- NOTE | 2016-11-13 10:19 | NUR ---
NETBACKUP ADMIN: full report was given for Evangelina RN [facility]ON[facility], included DT order recommendation: multivitamins one tab daily
--- NOTE | 2016-11-13 10:26 | NUR ---
MEDICAL EDUCATION COORDINATOR: called, updated with pt.current/neuro condition, VS, I/O, via TT suction amount, ok to transfer to [facility], ordered: swallow evaluation and evaluation with ST aspiration risk, NGT needs to be remove temporary? and TT suction amount eval., video swallow eval issue, see new order. Confirmed: no order for multivitamins
--- NOTE | 2016-11-13 10:40 | NUR ---
RAG SORTER AND CUTTER: sent message for ST to update with MD order
--- NOTE | 2016-11-13 10:50 | NUR ---
CUSTOMER SOLUTIONS REPRESENTATIVE: pt.is transferred to [facility], SALMA Hutchinson updated with last orders
--- NOTE | 2016-11-13 11:00 | NUR ---
[facility] transfer note received patient resting in bed, able to follow simple commands and nod yes and no, non-verbal. breathing even and unlabored, RR 25. o2 sat 95% with cool aerosol t bar, suctioned, no secretions at this time, RT at bedside. no NG tube residual, feeding infusing at prescribed rare. JESUSITA midline patent, dressing cdi, no compilations. sacrum skin intact, diaper changed. abd hard, non distended. BS present. denies pain. t 98.4, hr 107, bp 132/82. met all needs. patient comfortable. will continue to monitor.
[2016-11-13] MEDS: FIBERSOURCE HN 1,000 ML BOTTLE GT PRN (18:13)
--- NOTE | 2016-11-13 18:51 | NUR ---
seen and examined by dr. Duran at this time. MD aware of O2 sat sustaining 91% and dropping to low 80s during ADL.
--- NOTE | 2016-11-13 20:08 | NUR ---
RN NOTES: RECEIVED PATIENT IN BED, EYES CLOSE. NO PHYSICAL MANIFESTATION OF PAIN OR DISCOMFORT. NO RESPIRATORY DISTRESS OR SHORTNESS OF BREATH. BREATHING EVEN AND UNLABORED. COOL AEROSOL VIA MASK TOLERATING WELL. NGTUBE IN PLACE, PATENT. FEEDING WELL TOLERATED. LEFT HAND RESTRAINT IN PLACE FOR PREVENTION FROM PULLING OUT TUBING. WILL CONTINUE TO MONITOR.
[2016-11-13] MEDS: METOPROLOL TARTRATE 25 MG TABLET GT SCH (20:56)
[2016-11-13] MEDS: ENOXAPARIN SODIUM 40 MG/0.4 ML DISP.SYRIN SQ SCH (20:58)
[2016-11-13] MEDS: ATORVASTATIN 10 MG TABLET PO SCH (21:02)
[2016-11-13] MEDS: PANTOPRAZOLE 40 MG VIAL IV SCH (22:49)
[2016-11-14] VITALS: BP_SYST 105; BP_SYST 115; BP_DIAS 72; BP_DIAS 87
[2016-11-14] MEDS: IPRATROPIUM NEB FS 0.5 MG/2.5 ML AMPUL.NEB NEB SCH ×5 (03:31→19:53)
[2016-11-14 04:00] VITALS: BP_SYST 125; BP_SYST 133; BP_DIAS 69; BP_DIAS 88
[2016-11-14] MEDS: ALBUTEROL FS 2.5 MG/0.5 ML VIAL.NEB NEB SCH ×4 (07:48→19:53)
[2016-11-14 08:00] VITALS: BP 123/76
[2016-11-14] MEDS: LACTOBACILLUS RHAMNOSUS GG 1 EACH CAP.SPRINK PO SCH ×2 (08:00→16:44)
[2016-11-14] MEDS: HYDROGEL DRESSING 90 GM TUBE TP SCH (08:00)
[2016-11-14] MEDS: ASPIRIN 81 MG TAB.CHEW PO SCH (08:00)
[2016-11-14] MEDS: METOPROLOL TARTRATE 25 MG TABLET GT SCH ×2 (08:00→20:19)
[2016-11-14] MEDS: UREA 10% -AHA 4% CREAM 57 GM TUBE TP SCH (08:01)
[2016-11-14 12:00] VITALS: BP 127/75
--- NOTE | 2016-11-14 12:47 | NUR ---
seen and examined by dr. Duran. MD made aware of temperature rising. gave verbal order for cxr today and cbc tomorrow. also verbal order for prn eyes gtt
[2016-11-14] MEDS ORDERED: CARBOXYMETHYLCELLULOSE SODIUM 0.4 ML DROPERETTE EACHEYE PRN (13:00)
[2016-11-14 16:00] VITALS: BP 118/75
--- NOTE | 2016-11-14 16:59 | NUR ---
PAGED DR. GALLEGOS @ AND LEFT MESSAGE WITH REGARDING CXR RESULTS. PENDING RESPONSE.
[2016-11-14 20:00] VITALS: BP 129/79
--- NOTE | 2016-11-14 20:00 | NUR ---
amairani rn notes received pts with eye open,on trach tpiece sating at 96% at 10 liters of 02 ,no sob no distress ,no facial Grimaces noted , temp of 101.4 , sponge bath and colling measures administered , turned and reposition , suctioned and hob elevated for aspiration precaution.v/s stable pts on tele sr on the monitor.on ngt intact and patent placement check, no residual noted. all needs attended too call light with in reach kept pts clean dry and comfortable.
[2016-11-14] MEDS: ENOXAPARIN SODIUM 40 MG/0.4 ML DISP.SYRIN SQ SCH (20:21)
--- NOTE | 2016-11-14 21:00 | NUR ---
amairani rn notes temp . check =98.7 will continue to monitor.pts is comfortable in bed. sating 100 % at this time.
[2016-11-14] MEDS: ATORVASTATIN 10 MG TABLET PO SCH (21:35)
[2016-11-14] MEDS: PANTOPRAZOLE 40 MG VIAL IV SCH (21:57)
[2016-11-15] VITALS: BP 124/73
--- NOTE | 2016-11-15 02:00 | NUR ---
amairani rn notes pts noted with trying to pulled out ng tube . r/b explained ,visual check done , pts attempted one more time to reach the ngt , left soft wrist restraint applied will continue to monitor pts .
[2016-11-15 04:00] VITALS: BP_SYST 108; BP_SYST 121; BP_DIAS 68; BP_DIAS 83
[2016-11-15] MEDS: IPRATROPIUM NEB FS 0.5 MG/2.5 ML AMPUL.NEB NEB SCH ×7 (04:11→23:33)
[2016-11-15 06:47] LABS: BASOPHILS % (AUTO) 0.2 % (0.0-2.0); EOSINOPHILS # (AUTO) 0.1 /CMM (0.0-0.7); EOSINOPHILS % (AUTO) 0.6 % (0.0-6.0); HEMATOCRIT 50 % (39-51); HEMOGLOBIN 15.8 g/dL (13.5-17.5); MEAN CORPUSCULAR HEMOGLOBIN 29 PG (26.0-33.0); MEAN CORPUSCULAR HGB CONC 32 g/dl (31.0-36.0); MEAN CORPUSCULAR VOLUME 93 fL (80-96); MONOCYTES # (AUTO) 1.6 /CMM (0.1-1.30); MONOCYTES % (AUTO) 14.9 % (2.0-12.0); NEUTROPHILS # (AUTO) 6.8 /CMM (1.8-8.9); NEUTROPHILS % (AUTO) 65.3 % (43.0-81.0); PLATELET COUNT (AUTO) 211 /CMM (150-450); RDW COEFFICIENT OF VARIATION 13.3 (11.5-15.0); WHITE BLOOD COUNT (AUTO) 10.4 K/uL (4.3-11.0)
--- NOTE | 2016-11-15 06:50 | NUR ---
TONNY RN NOTES PTS REMAINS ON TELE SR ON THE MONITOR , ON TPIECE AT 10LITERS OF 02 40% FIO2 SATING 99%.V/S STABLE AFEBRILE, STILL NOTED PRODUCTIVE SECRETION SUCTIONED SECRETION DONE , ON NGT FEEDING WELL TOLERATED, HOB ELEVATED FOR ASPIRATION PRECAUTION.REMAINS ON LEFT SOFT WRIST RESTRAINT TO PREVENT FROM PULLING INVASIVE TUBINGS , PTS STILL HAVING LOW GRADE FEVER COOLING MEASURES ADMINISTERED , WILL ENDORSE TO RN DAY SHIFT FOR CONTINUITY OF CARE.
--- NOTE | 2016-11-15 07:10 | NUR ---
RN INITIAL NOTES: REC'D PT ON BED, OBTUNDED, OPENS EYES SPONTANEOUSLY. PT ON COOL AEROSOL, FIO2 40%, O2 10LPM, SATURATING AT 100%. SECRETIONS SUCTIONED. ON TELEMONITOR, SR/ST. HAS NGT ON LEFT NARE, (ON 70CM), ON CONT TUBE FEEDING FIBERSOURCE X 70 CC/HR, NO RESIDUAL NOTED UPON CHECKING. HAS JESUSITA MIDLINE, FLUSHED, PATENT & INTACT W/ NO S/SX OF INFECTION/ INFILTRATION. PT IS AFEBRILE. HAS LEFT WRIST RESTRAINT. PROVIDED COMFORT & SAFETY MEASURES. CALL LIGHT PLACED W/IN REACH. BED KEPT LOW & IN LOCKED POS. NEEDS ATTENDED. WILL CONTINUE TO MONITOR.
[2016-11-15] MEDS: ALBUTEROL FS 2.5 MG/0.5 ML VIAL.NEB NEB SCH ×4 (07:35→19:31)
[2016-11-15] MEDS: ALBUTEROL HALF STRENGTH 1.25 MG/3 ML VIAL.NEB NEB PRN (07:42)
[2016-11-15 08:00] VITALS: BP 139/92
[2016-11-15] MEDS: ASPIRIN 81 MG TAB.CHEW PO SCH (08:03)
[2016-11-15] MEDS: LACTOBACILLUS RHAMNOSUS GG 1 EACH CAP.SPRINK PO SCH ×2 (08:03→17:15)
[2016-11-15] MEDS: HYDROGEL DRESSING 90 GM TUBE TP SCH (08:06)
[2016-11-15] MEDS: METOPROLOL TARTRATE 25 MG TABLET GT SCH ×2 (08:06→21:06)
[2016-11-15] MEDS: UREA 10% -AHA 4% CREAM 57 GM TUBE TP SCH (08:07)
[2016-11-15] MEDS: FIBERSOURCE HN 1,000 ML BOTTLE GT PRN (08:07)
--- NOTE | 2016-11-15 09:00 | NUR ---
RN NOTES: PT SEEN & EXAMINED BY DR. SUN. NO ABG NEEDED AT THIS TIME.
[2016-11-15 12:00] VITALS: BP 109/71
--- NOTE | 2016-11-15 14:07 | NUR ---
RN NOTES: PT SEEN & EXAMINED BY DR. GALLEGOS. PER MD, HE WILL CONTACT GI MD (UNSURE OF GI DOCTOR.. DR. MULTANI?) FOR POSSIBLE PEG PLACEMENT. ORDERED FOR SWALLOW EVALUATION FOR ORAL GRATIFICATION.
[2016-11-15 16:00] VITALS: BP 108/68
--- NOTE | 2016-11-15 19:15 | NUR ---
RN CLOSING NOTES: NO ACUTE CHANGES NOTED W/IN SHIFT. PT TOLERATED COOL AEROSOL, FIO2 35%, O2 8LPM, SATURATING AT 100%. SECRETIONS SUCTIONED. ON TELEMONITOR, SR. NGT ON LEFT NARE, (ON 70CM), KEPT PATENT & INTACT, ON CONT TUBE FEEDING FIBERSOURCE X 70 CC/HR, NO RESIDUAL NOTED W/IN SHIFT. JESUSITA MIDLINE, KEPT PATENT & INTACT W/ NO S/SX OF INFECTION/ INFILTRATION. PT IS AFEBRILE. PT NOT PULLING TUBES/ LINES AT THIS TIME, RESTRAINT ON LEFT WRIST TAKEN OFF. KEPT WELL RESTED. NEEDS ATTENDED. ISOLATION PREC OBSERVED. CALL LIGHT PLACED W/IN REACH. BED KEPT LOW & IN LOCKED POS. ENDORSED TO PM RN FOR CLAUDIA.
[2016-11-15 20:00] VITALS: BP 128/69
--- NOTE | 2016-11-15 20:00 | NUR ---
REGISTERED MEDICAL TRANSCRIPTIONIST NOTES RECEIVED PTS ON BED REMAINS ON T-PIECE AT 35%FIO2 AT 8LITERS OF 02 . ON TELE SR ON THE MONITOR V/S STABLE AFEBRILE , HOB ELEVATED FOR ASPIRATION PRECAUTION , WITH NGT INTACT AND PATENT , PLACEMENT CHECKED . ON NGT FEEDING WELL TOLERATED , NO RESIDUAL NOTED , ALL NEEDS ATTENDED TOO CALL LIGHT WITHIN REACH ALL DUE MEDS GIVEN ORDERED, KEPT PTS CLEAN DRY AND COMFORTABLE.
[2016-11-15] MEDS: ATORVASTATIN 10 MG TABLET PO SCH (21:07)
[2016-11-15] MEDS: ENOXAPARIN SODIUM 40 MG/0.4 ML DISP.SYRIN SQ SCH (21:07)
[2016-11-15] MEDS: PANTOPRAZOLE 40 MG VIAL IV SCH (21:34)
[2016-11-16] VITALS: BP 120/83
[2016-11-16] MEDS: FIBERSOURCE HN 1,000 ML BOTTLE GT PRN (00:05)
[2016-11-16] MEDS: IPRATROPIUM NEB FS 0.5 MG/2.5 ML AMPUL.NEB NEB SCH ×6 (03:09→23:14)
[2016-11-16 04:00] VITALS: BP_SYST 119; BP_SYST 121; BP_DIAS 66; BP_DIAS 80
--- NOTE | 2016-11-16 06:32 | NUR ---
RAILWAY STATION MANAGER NOTES PTS REMAINS ON T-PIECE, STABLE V/S AFEBRILE , ON SR ON THE MONITOR NO SIGNIFICANT CHANGE NOTED, WILL ENDORSE TO RN DAY SHIFT FOR CONTINUITY OF CARE
--- NOTE | 2016-11-16 07:36 | NUR ---
SAFETY AND OCCUPATIONAL HEALTH MANAGER INITIAL NOTES RECEIVED PTS ON BED REMAINS ON T-PIECE AT 35%FIO2 AT 8LITERS OF 02 . ON TELE SR ON THE MONITOR V/S STABLE AFEBRILE , HOB ELEVATED FOR ASPIRATION PRECAUTION , WITH NGT INTACT AND PATENT , PLACEMENT CHECKED . ON NGT FEEDING WELL TOLERATED , NO RESIDUAL NOTED , ALL NEEDS ATTENDED TOO CALL LIGHT WITHIN REACH PTS CLEAN DRY AND COMFORTABLE.RN WILL CONTINUE TO MONITOR
[2016-11-16 08:00] VITALS: BP_SYST 133; BP_DIAS 70; BP_DIAS 85
[2016-11-16] MEDS: ALBUTEROL HALF STRENGTH 1.25 MG/3 ML VIAL.NEB NEB PRN (08:08)
[2016-11-16] MEDS: ALBUTEROL FS 2.5 MG/0.5 ML VIAL.NEB NEB SCH ×4 (08:09→19:54)
[2016-11-16] MEDS: ASPIRIN 81 MG TAB.CHEW PO SCH (10:12)
[2016-11-16] MEDS: LACTOBACILLUS RHAMNOSUS GG 1 EACH CAP.SPRINK PO SCH ×2 (10:12→16:58)
[2016-11-16] MEDS: METOPROLOL TARTRATE 25 MG TABLET GT SCH ×2 (10:12→21:32)
[2016-11-16] MEDS: HYDROGEL DRESSING 90 GM TUBE TP SCH (10:13)
[2016-11-16] MEDS: UREA 10% -AHA 4% CREAM 57 GM TUBE TP SCH (10:13)
[2016-11-16 12:00] VITALS: BP 144/103
--- NOTE | 2016-11-16 14:30 | NUR ---
RN note RN CONTACTED RT IN REGARDS TO PATIENT CONSTANT DESATURATION AND CONGESTION NOTED . PATIENT CURRENTLY NOT SHOWING SIGNS OF RESPIRATORY DISTRESS BUT REQUESTING THAT RT COMES TO EVALUATE THE PATIENT FURTHER. RN SPOKE WITH NANCY FALCON .
[2016-11-16 16:00] VITALS: BP 166/102
[2016-11-16 16:13] LABS: ABG BASE EXCESS 8.3 mmol/L; ABG OXYGEN SATURATION 96.1 % (92.0-98.5); ABG PCO2 86.7 mmHg (35.0-45.0); ABG PH 7.279 (7.350-7.450); ABG PO2 89.1 mmHg (75.0-100.0); AaDO2 390.3 mmHg; COHb 0.7 % (0.5-1.5); MetHb 0.6 % (0.0-1.5); O2Hb 94.9 % (94.0-97.0); SITE, ABG Left Femoral; VENT MODE, BG COOL AEROSOL @ 80%
--- NOTE | 2016-11-16 16:36 | NUR ---
RN NOTE RN SPOKE WITH YAZMIN RT- RN INFORMED THAT THE PATIENT WAS PLACED ON VENT DUE TO SHALLOW BREATHING MD SUN NOTIFIED PT SETTING ARE FOLLOWS AC 12 FIO2 500 , 40% AND PEEP 5 . MD SUN ALSO ORDERED ADDITIONAL ABG IN THE AM AND CHEST X-RAY. ORDERS PLACED . RN WILL CONTINUE TO FOLLOW THE PATIENT PROGRESS
--- NOTE | 2016-11-16 18:43 | NUR ---
RN CLOSING NOTES: PT EXPERIENCED MINOR SOB THROUGHOUT THE SHIFT RT CONTACTED DR. SUN AND RECIEVED ORDERS TO PLACE PATIENT ON VENTALATOR PATIENT ON VENT . TOLERATING SETTINGS WEELSATURATING AT 100%. SECRETIONS SUCTIONED. ON TELEMONITOR, SR. NGT ON LEFT NARE, (ON 70CM), KEPT PATENT & INTACT, ON CONT TUBE FEEDING FIBERSOURCE X 70 CC/HR, NO RESIDUAL NOTED W/IN SHIFT. JESUSITA MIDLINE, KEPT PATENT & INTACT W/ NO S/SX OF INFECTION/ INFILTRATION. PT IS AFEBRILE. PT NOT PULLING TUBES/ LINES AT THIS TIME, RESTRAINT ON LEFT WRIST TAKEN OFF. KEPT WELL RESTED. NEEDS ATTENDED. ISOLATION PREC OBSERVED. CALL LIGHT PLACED W/IN REACH. BED KEPT LOW & IN LOCKED POS. ENDORSED TO PM RN FOR CLAUDIA.
--- NOTE | 2016-11-16 19:05 | NUR ---
RN OPENING NOTES RECEIVED REPORT FROM LAITH MARSH. PATIENT A/A/O X1, NON-VERBAL. RESPONSIVE TO VERBAL AND TACTILE STIMULI. TRACH INTACT, NO SWELLING OR BLEEDING NOTED @ SITE. TOLERATING VENT SETTINGS OF AC 12, TV 500, FIO2 40% PEEP 5. NO RESPIRATORY DISTRESS NOTED. ON TELE SINUS RHYTHM IN THE 70S. NGT INTACT AND FLUSHING WELL, NO RESIDUAL NOTED. FIBERSOURCE @ 70 ML/HR, TOLERATING WELL. RIGHT UPPER MIDLINE CDI, SALINE LOCK. SIDE RAILS UP, BED LOCKED AND IN LOWEST POSITION. WILL CONTINUE TO MONITOR.
[2016-11-16 20:00] VITALS: BP 104/75
[2016-11-16] MEDS: ATORVASTATIN 10 MG TABLET PO SCH (21:32)
[2016-11-16] MEDS: PANTOPRAZOLE 40 MG VIAL IV SCH (21:32)
[2016-11-16] MEDS: ENOXAPARIN SODIUM 40 MG/0.4 ML DISP.SYRIN SQ SCH (21:32)
[2016-11-17] VITALS: BP 100/75
--- NOTE | 2016-11-17 00:17 | NUR ---
RN NOTES CALLED AND SPOKE TO DR GALLEGOS REGARDING ORDER FOR TYLENOL DUE TO PATIENT'S INCREASED TEMP. PER DR GALLEGOS, HE DOES NOT WANT ANY ANTIPYRETIC MEDS FOR PATIENT AND NO NEW ORDERS DESPITE POSSIBILITY OF INCREASING TEMP. COOLING MEASURES OKAY.
[2016-11-17] MEDS: FIBERSOURCE HN 1,000 ML BOTTLE GT PRN ×2 (01:48→16:09)
[2016-11-17] MEDS: IPRATROPIUM NEB FS 0.5 MG/2.5 ML AMPUL.NEB NEB SCH ×6 (03:30→23:13)
[2016-11-17 04:00] VITALS: BP 118/76
--- NOTE | 2016-11-17 07:00 | NUR ---
RN NOTES RECEIVED PT ON BED , A/A/O X1, NON-VERBAL. RESPONSIVE TO VERBAL AND TACTILE STIMULI. TRACH/ VENT DEPENDENT TOLERATING VENT SETTINGS OF AC 12, TV 500, FIO2 40% PEEP 5 WELL, NO RESPIRATORY DISTRESS NOTED. ON TELE SINUS RHYTHM , TOLERATING NGT FEEDING WELL , FIBERSOURCE @ 70 ML/HR NO RESIDUAL NOTED. RIGHT UPPER MIDLINE CDI,SIDE RAILS UP x3, CALL LIGHT WITHIN EASY REACH, BED LOCKED AND IN LOWEST POSITION. WILL CONTINUE TO MONITOR CLOSELY
[2016-11-17] MEDS: ALBUTEROL FS 2.5 MG/0.5 ML VIAL.NEB NEB SCH ×4 (07:40→19:56)
[2016-11-17 08:00] VITALS: BP 124/76
[2016-11-17 08:04] LABS: ABG BASE EXCESS 7.2 mmol/L; ABG OXYGEN SATURATION 96.3 % (92.0-98.5); ABG PCO2 54.9 mmHg (35.0-45.0); ABG PH 7.408 (7.350-7.450); ABG PO2 84.7 mmHg (75.0-100.0); AaDO2 137.4 mmHg; COHb 1.3 % (0.5-1.5); MetHb 0.7 % (0.0-1.5); O2Hb 94.4 % (94.0-97.0); SITE, ABG Right Radial
[2016-11-17] MEDS: ASPIRIN 81 MG TAB.CHEW PO SCH (08:39)
[2016-11-17] MEDS: LACTOBACILLUS RHAMNOSUS GG 1 EACH CAP.SPRINK PO SCH ×2 (08:39→17:08)
[2016-11-17] MEDS: METOPROLOL TARTRATE 25 MG TABLET GT SCH ×2 (08:40→21:24)
[2016-11-17] MEDS: UREA 10% -AHA 4% CREAM 57 GM TUBE TP SCH (08:41)
[2016-11-17] MEDS: HYDROGEL DRESSING 90 GM TUBE TP SCH (08:41)
[2016-11-17 12:00] VITALS: BP 113/72
--- NOTE | 2016-11-17 12:00 | NUR ---
RN NOTES PT STABLE , TRACH SUCTIONING DONE, CONTINUE TO MONITOR CLOSELY.
[2016-11-17 16:00] VITALS: BP 105/71
--- NOTE | 2016-11-17 18:29 | NUR ---
RN NOTES PT AT REST , TRACH CARE DONE, R UPPER ARM MIDLINE CDI, TOLERATING TF AT 70CC/HR WELL , NO RESIDUAL NOTED, SR UP x3, CALL LIGHT WITHIN EASY REACH, BED LOCKED AND IN LOWEST POSITION , NO SIGNIFICANT CHANGES NOTED ON THIS SHIFT .
--- NOTE | 2016-11-17 19:20 | NUR ---
VULCANIZER RUBBER PLATE INITIAL NOTE PT RECEIVED IN NO ACUTE DISTRESS. OPENS EYES BUT UNABLE TO COMMUNICATE. TRACH TUBE WITH VENT SETTINGS BEING TOLERATED. ON TELE WITH SR 67. NGT RUNNING FIBERSOURCE @70CC/HR WELL ALL MEDICATIONS. WILL ENSURE SAFETY/COMFORT MEASURES AND MONITOR FOR ANY CHANGES.
[2016-11-17 20:00] VITALS: BP 119/80
[2016-11-17] MEDS: ATORVASTATIN 10 MG TABLET PO SCH (21:25)
[2016-11-17] MEDS: ENOXAPARIN SODIUM 40 MG/0.4 ML DISP.SYRIN SQ SCH (21:25)
[2016-11-17] MEDS: PANTOPRAZOLE 40 MG VIAL IV SCH (21:32)
[2016-11-18] VITALS: BP 110/70
[2016-11-18] MEDS: IPRATROPIUM NEB FS 0.5 MG/2.5 ML AMPUL.NEB NEB SCH ×6 (02:53→23:58)
[2016-11-18 04:00] VITALS: BP 97/73
--- NOTE | 2016-11-18 06:23 | NUR ---
VICE PRESIDENT QUALITY CLOSING NOTE PT REMAINS IN NO ACUTE DISTRESS. PT IS NONVERBAL BUT OPENS EYES. PULLED OUT TRACH TUBE DURING CLEANING SO RESTRAINT WAS REINFORCED. ALL VENT SETTINGS WERE TOLERATED WELL. ON TELE WITH SR 64. IV LINES ARE CLEAN DRY AND INTACT. COMFORT AND SAFETY MEASURES ENSURED. WILL ENDORSE CARE TO AM NURSE.
--- NOTE | 2016-11-18 07:00 | NUR ---
RN NOTE RECEIVED PT ON BED, VENT/ TRACH DEPENDENT, NO VERBAL, OPEN EYES , TRACH CARE DONE, TOLERATING CURRENT VENT SETTING WELL. ON TELE WITH SR IN 60'S ,R UPPER ARM MIDLINE CDI, NGT RUNNING FIBERSOURCE @70CC/HR , TOLERATING WELL, NO RESIDUAL NOTED, SR UP x3, CALL LIGHT WITHIN EASY REACH, WILL CONTINUE TO MONITOR PT CLOSELY AND NOTIFY MD FOR CIERRA SIGNIFICANT CHANGES.
[2016-11-18] MEDS: ALBUTEROL FS 2.5 MG/0.5 ML VIAL.NEB NEB SCH ×4 (07:39→20:02)
[2016-11-18 08:00] VITALS: BP 121/64
[2016-11-18] MEDS: METOPROLOL TARTRATE 25 MG TABLET GT SCH ×2 (08:37→21:33)
[2016-11-18] MEDS: LACTOBACILLUS RHAMNOSUS GG 1 EACH CAP.SPRINK PO SCH ×2 (08:37→17:28)
[2016-11-18] MEDS: ASPIRIN 81 MG TAB.CHEW PO SCH (08:37)
[2016-11-18] MEDS: UREA 10% -AHA 4% CREAM 57 GM TUBE TP SCH (08:38)
[2016-11-18] MEDS: HYDROGEL DRESSING 90 GM TUBE TP SCH (08:38)
[2016-11-18] MEDS: FIBERSOURCE HN 1,000 ML BOTTLE GT PRN (08:45)
[2016-11-18 12:00] VITALS: BP 97/65
--- NOTE | 2016-11-18 12:00 | NUR ---
RN NOTES TRACH CARE DONE , NO DISTRESS NOTED
[2016-11-18 16:00] VITALS: BP 103/73
--- NOTE | 2016-11-18 18:41 | NUR ---
RN NOTES PT STABLE , TRACH CARE DONE, TOLERATING TF WELL, R UPPER ARM MIDLINE SITE CDI, MEDICATED PER MD ORDER , SR UP x3, CALL LIGHT WITHIN EASY REACH , NO SIGNIFICANT. CHANGES NOTED ON THIS SHIFT
--- NOTE | 2016-11-18 19:20 | NUR ---
MIX CHEMIST INITIAL NOTE PT RECEIVED IN NO ACUTE DISTRESS. OPENS EYES BUT UNABLE TO COMMUNICATE. TRACH TUBE WITH VENT SETTINGS BEING TOLERATED. ON TELE WITH SR 67. NGT RUNNING FIBERSOURCE @70CC/HR WELL ALL MEDICATIONS. WILL ENSURE SAFETY/COMFORT MEASURES AND MONITOR FOR ANY CHANGES.
[2016-11-18 20:00] VITALS: BP 111/89
[2016-11-18] MEDS: ATORVASTATIN 10 MG TABLET PO SCH (21:34)
[2016-11-18] MEDS: PANTOPRAZOLE 40 MG VIAL IV SCH (21:34)
[2016-11-18] MEDS: ENOXAPARIN SODIUM 40 MG/0.4 ML DISP.SYRIN SQ SCH (21:34)
[2016-11-19] VITALS: BP 94/61
[2016-11-19] MEDS: IPRATROPIUM NEB FS 0.5 MG/2.5 ML AMPUL.NEB NEB SCH ×6 (03:20→23:49)
[2016-11-19 04:00] VITALS: BP 100/72
[2016-11-19] MEDS: ALBUTEROL FS 2.5 MG/0.5 ML VIAL.NEB NEB SCH ×4 (07:35→19:36)
[2016-11-19 08:00] VITALS: BP 91/60
[2016-11-19] MEDS: METOPROLOL TARTRATE 25 MG TABLET GT SCH ×2 (09:00→21:27)
[2016-11-19] MEDS: UREA 10% -AHA 4% CREAM 57 GM TUBE TP SCH (09:40)
[2016-11-19] MEDS: ASCORBIC ACID 500 MG TABLET PO SCH (09:40)
[2016-11-19] MEDS: ASPIRIN 81 MG TAB.CHEW PO SCH (09:40)
[2016-11-19] MEDS: LACTOBACILLUS RHAMNOSUS GG 1 EACH CAP.SPRINK PO SCH ×2 (09:40→17:53)
[2016-11-19] MEDS: HYDROGEL DRESSING 90 GM TUBE TP SCH (09:41)
[2016-11-19 12:00] VITALS: BP 101/68
--- NOTE | 2016-11-19 13:00 | NUR ---
RN NOTE PATIENT SCHEDULED FOR PEG PLACEMENT TOMORROW. PER BOARD AND CARE PATIENT HAS NO FAMILY. CONSENT SIGNED BY TWO MEDICAL DOCTORS.
--- NOTE | 2016-11-19 13:58 | NUR ---
patient no family to consent for peg/egd,dr. walsh notified verbalized he will dictate his consent for the procedure via [facility].
--- NOTE | 2016-11-19 15:29 | NUR ---
dr. bergeron gave second md consent since no family,dr. walsh notified.
[2016-11-19 16:00] VITALS: BP 117/75
--- NOTE | 2016-11-19 18:39 | NUR ---
RN INITIAL NOTE PATIENT RECEIVED IN BED. PT IS OBTUNDED. TRACTS WITH EYES. NO S/S OF PAIN OR DISCOMFORT. PT HAS TRACH PORTEX #7. VENT SETTINGS: AC-12 TV-500 FI02-40% PEEP OF 5. SATING WELL. NO S/S OF RESPIRATORY DISTRESS OR DISCOMFORT. IV SITE FLUSHED, PATENT. NGTUBE FLUSHED, PLACEMENT CONFIRMED. RUNNING FIBERSOURCE AT 70ML/HR. TOLERATING FEEDING WELL. SKIN IS WARM AND DRY TO TOUCH. SAFETY PRECAUTIONS IMPLEMENTED. BED IN LOCKED LOW POSITION. SAFETY RAILS UP. WILL MONITOR CLOSELY.
--- NOTE | 2016-11-19 18:42 | NUR ---
RN CLOSING NOTE ALL MD ORDERS CARRIED OUT. NO MAJOR EVENT DURING MY SHIFT. REPORT WILL BE GIVEN TO PM RN FOR CLAUDIA.
[2016-11-19 20:00] VITALS: BP 107/62
--- NOTE | 2016-11-19 20:00 | NUR ---
RN NOTES RECEIVED PATIENT IN BED WITH EYES CLOSED. NO RESPIRATORY DISTRESS OR SHORTNESS OF BREATH. BREATHING EVEN AND UNLABORED. NO PHYSICAL MANIFESTATION OF PAIN OR DISCOMFORT. VENT SETTING WELL TOLERATED. NGT IN PLACE, FEEDING TOLERATING WELL. ABDOMEN SOFT AND NON TENDER, BOWEL SOUNDS PRESENT IN ALL FOUR QUADRANTS. WILL CONTINUE TO MONITOR.
[2016-11-19] MEDS: ENOXAPARIN SODIUM 40 MG/0.4 ML DISP.SYRIN SQ SCH (21:00)
[2016-11-19] MEDS: ATORVASTATIN 10 MG TABLET PO SCH (21:27)
[2016-11-19] MEDS: PANTOPRAZOLE 40 MG VIAL IV SCH (22:41)
[2016-11-20] VITALS: BP 99/69
[2016-11-20] MEDS: IPRATROPIUM NEB FS 0.5 MG/2.5 ML AMPUL.NEB NEB SCH ×6 (03:08→23:45)
[2016-11-20 04:00] VITALS: BP 115/86
[2016-11-20] MEDS ORDERED: PIPERACILLIN /TAZOBACTAM 2.25 G VIAL IV ONE ×2 (05:31→06:28)
--- NOTE | 2016-11-20 07:33 | NUR ---
RN INITIAL NOTE RECEIVED PT FROM ANNETTE PM NURSE FOR CLAUDIA. VENT SETTINGS PORTEX #7 AC 12 TV 500 FI02 40 % PEEP 5. PT NON VERBAL OPEN EYES. TELE SR. PT NPO AWAITNG PEG PLACEMENT. IV JESUSITA MIDLINE INTACT PATENT AND FLUSHED. ALL SAFETY MEASURES IN PLACE. WILL CONTINUE TO MONITOR.
--- NOTE | 2016-11-20 07:58 | NUR ---
RN NOTE REMOVED PINK STICKY NOTE FOR PT SAFETY.
[2016-11-20 08:00] VITALS: BP 109/68
[2016-11-20] MEDS: ALBUTEROL FS 2.5 MG/0.5 ML VIAL.NEB NEB SCH ×4 (08:00→20:23)
[2016-11-20] MEDS: LACTOBACILLUS RHAMNOSUS GG 1 EACH CAP.SPRINK PO SCH ×2 (09:00→17:00)
[2016-11-20] MEDS: ASPIRIN 81 MG TAB.CHEW PO SCH (09:00)
[2016-11-20] MEDS: ASCORBIC ACID 500 MG TABLET PO SCH (09:00)
[2016-11-20] MEDS: METOPROLOL TARTRATE 25 MG TABLET GT SCH ×3 (09:00→21:00)
[2016-11-20] MEDS: UREA 10% -AHA 4% CREAM 57 GM TUBE TP SCH (10:06)
[2016-11-20] MEDS: HYDROGEL DRESSING 90 GM TUBE TP SCH (10:07)
[2016-11-20 12:00] VITALS: BP 103/69
[2016-11-20 16:00] VITALS: BP 106/72
--- NOTE | 2016-11-20 19:18 | NUR ---
RN CLOSING NOTE REPORT GIVEN TO TROY BLACK NURSE FOR CLAUDIA. VENT SETTINGS PORTEX #7 AC 12 TV 500 FI02 40 % PEEP 5. PT NON VERBAL OPEN EYES. TELE SR. PT NPO PEG PLACEMENT @ BEDSIDE NOW. CONSENT SIGNED. IV JESUSITA MIDLINE INTACT PATENT AND FLUSHED. ALL SAFETY MEASURES IN PLACE.
[2016-11-20 20:00] VITALS: BP 97/64
[2016-11-20] MEDS ORDERED: ANESTHESIA TRAY IN PYXIS 1 EA TRAY MC ONE (20:02)
--- NOTE | 2016-11-20 20:17 | NUR ---
RN INITIAL T NOTE RECEIVED PT FROM AM NURSE FOR CLAUDIA. VENT SETTINGS PORTEX #7 AC 12 TV 500 FI02 40 % PEEP 5. PT NON VERBAL OPEN EYES. TELE SR. PT NPO WITH MEDS ONLY, GTF TO BE STARTED IN AM PEG PLACEMENT DONE. NO SIGN OF FACIAL GRIMACING, GT SITE PATENT, INTACT, NO BLEEDING OR SIGN OF INFX, PT AFEBRILE, CITE CLEAN AND DRY. NOTED IV JESUSITA MIDLINE INTACT PATENT AND FLUSHED. ALL SAFETY MEASURES IN PLACE. WILL CONTINUE TO MONITOR
[2016-11-20] MEDS ORDERED: MUPIROCIN OINT 2% 22 GM TUBE SCH (21:00)
[2016-11-20] MEDS: ATORVASTATIN 10 MG TABLET PO SCH (21:50)
[2016-11-20] MEDS: PANTOPRAZOLE 40 MG VIAL IV SCH (21:50)
[2016-11-20] MEDS: ENOXAPARIN SODIUM 40 MG/0.4 ML DISP.SYRIN SQ SCH (21:54)
[2016-11-21] VITALS (8 sets, daily range): BP systolic 96–113; BP diastolic 65–83
[2016-11-21] MEDS: IPRATROPIUM NEB FS 0.5 MG/2.5 ML AMPUL.NEB NEB SCH ×6 (03:57→23:05)
--- NOTE | 2016-11-21 06:10 | NUR ---
RN CLOSING T NOTE RECEIVED PT TO AM NURSE FOR CLAUDIA. VENT SETTINGS PORTEX #7 AC 12 TV 500 FI02 40 % PEEP 5. ENDORSED PT NON VERBAL OPEN EYES. TELE SR. PT NPO WITH MEDS ONLY, GTF TO BE STARTED IN AM PEG PLACEMENT DONE. NO SIGN OF FACIAL GRIMACING, GT SITE PATENT, INTACT, NO BLEEDING OR SIGN OF INFX, PT AFEBRILE, CITE CLEAN AND DRY. NOTED IV JESUSITA MIDLINE INTACT PATENT AND FLUSHED. ALL SAFETY MEASURES IN PLACE. WILL CONTINUE TO MONITOR
--- NOTE | 2016-11-21 07:30 | NUR ---
RN INITAL NOTE RECEIVED REPORT FROM [facility] NURSE FOR CLAUDIA. VENT SETTINGS PORTEX #7 AC 12 TV 500 FI02 40 % PEEP 5. PT NON VERBAL OPEN EYES. TELE SR . PEG PLACED LAST NIGHT WILL START FEEDING PER GI MD. IV JESUSITA MIDLINE INTACT PATENT AND FLUSHED. ALL SAFETY MEASURES IN PLACE. WILL CONTINUE TO MONITOR.
[2016-11-21] MEDS: ALBUTEROL FS 2.5 MG/0.5 ML VIAL.NEB NEB SCH ×4 (07:38→19:18)
[2016-11-21] MEDS: ASPIRIN 81 MG TAB.CHEW PO SCH (08:05)
[2016-11-21] MEDS: ASCORBIC ACID 500 MG TABLET PO SCH (08:06)
[2016-11-21] MEDS: LACTOBACILLUS RHAMNOSUS GG 1 EACH CAP.SPRINK PO SCH ×2 (08:06→18:12)
[2016-11-21] MEDS: METOPROLOL TARTRATE 25 MG TABLET GT SCH ×2 (08:06→21:08)
[2016-11-21] MEDS: HYDROGEL DRESSING 90 GM TUBE TP SCH (08:08)
[2016-11-21] MEDS: UREA 10% -AHA 4% CREAM 57 GM TUBE TP SCH (08:08)
[2016-11-21] MEDS: PROSOURCE / PROSTAT (PYXIS) 30 ML UDC GT SCH ×2 (09:09→18:11)
[2016-11-21] MEDS: FIBERSOURCE HN 1,000 ML BOTTLE GT PRN (09:10)
[2016-11-21 11:17] LABS: ALBUMIN 2.8 g/dL (3.4-5.0); BILIRUBIN,TOTAL 0.8 mg/dL (0.2-1.0); CALCIUM, SERUM 8.8 mg/dL (8.5-10.1); CREATININE 1.1 mg/dL (0.6-1.3); POTASSIUM 4.6 mmol/L (3.5-5.1); TOTAL PROTEIN, SERUM 7.6 g/dL (6.4-8.2)
--- NOTE | 2016-11-21 19:59 | NUR ---
RN CLOSING NOTE REPORT GIVEN GEOGGORY PM NURSE FOR CLAUDIA. VENT SETTINGS PORTEX #7 AC 12 TV 500 FI02 40 % PEEP 5. PT NON VERBAL OPEN EYES. TELE SR . GTF FIBERSOURCE 65 PER PHARMACEUTICAL SPECIALTY REPRESENTATIVE. IV JESUSITA MIDLINE INTACT PATENT AND FLUSHED. ALL SAFETY MEASURES IN PLACE. ALL ORDERS CARRIED OUT.
[2016-11-21] MEDS: ATORVASTATIN 10 MG TABLET PO SCH (21:07)
[2016-11-21] MEDS: ENOXAPARIN SODIUM 40 MG/0.4 ML DISP.SYRIN SQ SCH (21:21)
[2016-11-21] MEDS: PANTOPRAZOLE 40 MG VIAL IV SCH (21:35)
--- NOTE | 2016-11-21 21:44 | NUR ---
PROTONIX IV PUSH MANUAL BAR CODE USED, VIAL ACCIDENTALLY DISPOSED OFF IN THE SHARPS CONTAINER AFTER DRAWING MEDICATION.
[2016-11-22] VITALS (7 sets, daily range): BP systolic 99–113; BP diastolic 66–80
[2016-11-22] MEDS: IPRATROPIUM NEB FS 0.5 MG/2.5 ML AMPUL.NEB NEB SCH ×5 (03:34→19:42)
[2016-11-22] MEDS: FIBERSOURCE HN 1,000 ML BOTTLE GT PRN (04:07)
--- NOTE | 2016-11-22 06:09 | NUR ---
RN CLOSING TELE NOTE ENDORSED PT TO AM NURSE FOR CLAUDIA. VENT SETTINGS PORTEX #7 AC 12 TV 500 FI02 40 % PEEP 5. PT NON VERBAL OPEN EYES. TELE SR. PT GTF STARTED, WELL TOLERATING NO RESIDUAL AT THIS TIME. NO SIGN OF FACIAL GRIMACING, GT SITE PATENT, INTACT, NO BLEEDING OR SIGN OF INFX, PT AFEBRILE, CITE CLEAN AND DRY. NOTED IV JESUSITA MIDLINE INTACT PATENT AND FLUSHED. ALL SAFETY MEASURES IN PLACE. WILL CONTINUE TO MONITOR.
[2016-11-22 06:27] LABS: BASOPHILS % (AUTO) 0.3 % (0.0-2.0); EOSINOPHILS # (AUTO) 0.3 /CMM (0.0-0.7); EOSINOPHILS % (AUTO) 3.2 % (0.0-6.0); HEMATOCRIT 45 % (39-51); HEMOGLOBIN 14.7 g/dL (13.5-17.5); LYMPHOCYTES # (AUTO) 2.1 /CMM (0.8-4.8); LYMPHOCYTES % (AUTO) 23.6 % (20.0-44.0); MEAN CORPUSCULAR HEMOGLOBIN 30 PG (26.0-33.0); MEAN CORPUSCULAR HGB CONC 33 g/dl (31.0-36.0); MEAN CORPUSCULAR VOLUME 90 fL (80-96); MONOCYTES # (AUTO) 1.2 /CMM (0.1-1.30); NEUTROPHILS # (AUTO) 5.4 /CMM (1.8-8.9); NEUTROPHILS % (AUTO) 59.9 % (43.0-81.0); PLATELET COUNT (AUTO) 261 /CMM (150-450); RDW COEFFICIENT OF VARIATION 12.6 (11.5-15.0); RED BLOOD CELL COUNT(AUTO) 4.98 MIL/uL (4.5-6.0); WHITE BLOOD COUNT (AUTO) 9.1 K/uL (4.3-11.0)
[2016-11-22] MEDS: ALBUTEROL FS 2.5 MG/0.5 ML VIAL.NEB NEB SCH ×4 (07:23→19:42)
--- NOTE | 2016-11-22 08:00 | NUR ---
RN NOTES RECEIVED [facility] WITH BREATHING NORMAL,EVEN AND UNLABORED. NO SOB NOTED. NO ACUTE DISTRESS NOTED. VENT SETTING REVIEWED AND VERIFIED, TOLERATED WELL. AFEBRILE. TELE MONITOR REVEALS SR, HR=75. IV JESUSITA MIDLINE IS PATENT AND INTACT, CONT ON GT FEED PER ORDER. TOLERATED WELL. NO RESIDUAL NOTED. ASPIRATION PRECAUTION TAKEN. HOB ELEVATED. KEPT CLEAN, DRY AND COMFORTABLE. ALL NEEDS ATTENDED. SAFETY MEASURE OBSERVED. CALL LIGHT WITH IN REACH. WILL CONT TO MONITOR.
[2016-11-22] MEDS: ASCORBIC ACID 500 MG TABLET PO SCH (08:49)
[2016-11-22] MEDS: ASPIRIN 81 MG TAB.CHEW PO SCH (08:49)
[2016-11-22] MEDS: METOPROLOL TARTRATE 25 MG TABLET GT SCH ×2 (08:51→22:07)
[2016-11-22] MEDS: PROSOURCE / PROSTAT (PYXIS) 30 ML UDC GT SCH ×2 (08:51→17:28)
[2016-11-22] MEDS: LACTOBACILLUS RHAMNOSUS GG 1 EACH CAP.SPRINK PO SCH ×2 (09:31→17:28)
[2016-11-22] MEDS: UREA 10% -AHA 4% CREAM 57 GM TUBE TP SCH (09:32)
[2016-11-22] MEDS: HYDROGEL DRESSING 90 GM TUBE TP SCH (09:32)
--- NOTE | 2016-11-22 19:26 | NUR ---
RN NOTES PATIENT ENDORSED TO NEXT SHIFT IN STABLE CONDITION WITH BREATHING NORMAL, EVEN AND UNLABORED. NO SOB NOTED. NO ACUTE DISTRESS NOTED. KEPT CLEAN, DRY AND COMFORTABLE. ALL NEEDS ATTENDED. SAFETY MEASURE OBSERVED. CALL LIGHT WITH IN REACH. WILL CONT TO MONITOR.
--- NOTE | 2016-11-22 19:41 | NUR ---
RN INITIAL TELE NOTE RECEIVED PT FROM AM NURSE FOR CLAUDIA. VENT SETTINGS PORTEX #7 AC 12 TV 500 FI02 40 % PEEP 5. PT NON VERBAL OPEN EYES. TELE SR. PT GTF STARTED, WELL TOLERATING NO RESIDUAL AT THIS TIME. NO SIGN OF FACIAL GRIMACING, GT SITE PATENT, INTACT, NO BLEEDING OR SIGN OF INFX, PT AFEBRILE, CITE CLEAN AND DRY. NOTED IV JESUSITA MIDLINE INTACT PATENT AND FLUSHED. ALL SAFETY MEASURES IN PLACE. WILL CONTINUE TO MONITOR.
[2016-11-22] MEDS: ATORVASTATIN 10 MG TABLET PO SCH (22:07)
[2016-11-22] MEDS: ENOXAPARIN SODIUM 40 MG/0.4 ML DISP.SYRIN SQ SCH (22:11)
[2016-11-23] VITALS: BP 109/75
[2016-11-23] MEDS: IPRATROPIUM NEB FS 0.5 MG/2.5 ML AMPUL.NEB NEB SCH ×4 (03:00→11:38)
[2016-11-23 04:00] VITALS: BP 106/68
[2016-11-23 04:13] VITALS: BP 106/68
[2016-11-23] MEDS: FIBERSOURCE HN 1,000 ML BOTTLE GT PRN (06:03)
[2016-11-23 07:04] LABS: EOSINOPHILS # (AUTO) 0.1 /CMM (0.0-0.7); EOSINOPHILS % (AUTO) 0.8 % (0.0-6.0); HEMATOCRIT 46 % (39-51); HEMOGLOBIN 14.9 g/dL (13.5-17.5); LYMPHOCYTES # (AUTO) 1.9 /CMM (0.8-4.8); LYMPHOCYTES % (AUTO) 23.3 % (20.0-44.0); MEAN CORPUSCULAR HEMOGLOBIN 29 PG (26.0-33.0); MEAN CORPUSCULAR HGB CONC 32 g/dl (31.0-36.0); MEAN CORPUSCULAR VOLUME 90 fL (80-96); MONOCYTES # (AUTO) 0.7 /CMM (0.1-1.30); MONOCYTES % (AUTO) 8.6 % (2.0-12.0); NEUTROPHILS # (AUTO) 5.6 /CMM (1.8-8.9); NEUTROPHILS % (AUTO) 67.3 % (43.0-81.0); PLATELET COUNT (AUTO) 230 /CMM (150-450); RDW COEFFICIENT OF VARIATION 12.9 (11.5-15.0); RED BLOOD CELL COUNT(AUTO) 5.12 MIL/uL (4.5-6.0); WHITE BLOOD COUNT (AUTO) 8.3 K/uL (4.3-11.0)
[2016-11-23] MEDS ORDERED: PANTOPRAZOLE 40 MG TABLET.DR PO SCH (07:30)
[2016-11-23 07:36] LABS: CALCIUM, SERUM 8.4 mg/dL (8.5-10.1); CREATININE 0.8 mg/dL (0.6-1.3); POTASSIUM 4.8 mmol/L (3.5-5.1)
[2016-11-23] MEDS: ALBUTEROL FS 2.5 MG/0.5 ML VIAL.NEB NEB SCH ×2 (07:47→11:39)
[2016-11-23 07:55] LABS: THYROID STIMULATING HORMONE 1.476 uIU/mL (0.358-3.74)
[2016-11-23 08:00] VITALS: BP 108/66
--- NOTE | 2016-11-23 09:00 | NUR ---
RN INITIAL TELE NOTE RECEIVED PT IN BED SLEEPING. VENT SETTINGS PORTEX #7 AC 12 TV 500 FI02 40 % PEEP 5. PT NON VERBAL OPEN EYES WHEN NAME IS CALLED . TELE SR. PT GTF CURRENTLY RUNNING AT 65 CC/HR WELL TOLERATING NO RESIDUAL AT THIS TIME. NO SIGN OF PAIN NOTED, GT SITE PATENT, INTACT, NOTED PT HAS A EJSUSITA MIDLINE INTACT PATENT AND FLUSHED. ALL SAFETY MEASURES IN PLACE. RN WILL CONTINUE TO MONITOR.
[2016-11-23] MEDS: ASPIRIN 81 MG TAB.CHEW PO SCH (09:22)
[2016-11-23] MEDS: PROSOURCE / PROSTAT (PYXIS) 30 ML UDC GT SCH (09:22)
[2016-11-23] MEDS: ASCORBIC ACID 500 MG TABLET PO SCH (09:22)
[2016-11-23] MEDS: LACTOBACILLUS RHAMNOSUS GG 1 EACH CAP.SPRINK PO SCH (09:22)
[2016-11-23] MEDS: UREA 10% -AHA 4% CREAM 57 GM TUBE TP SCH (09:23)
[2016-11-23] MEDS: HYDROGEL DRESSING 90 GM TUBE TP SCH (09:23)
[2016-11-23] MEDS: METOPROLOL TARTRATE 25 MG TABLET GT SCH (09:31)
--- NOTE | 2016-11-23 11:57 | NUR ---
RN KATHY RN CONTACTED [place] AND PROVIDED REPORT TO EULA MARSH , RN ACKNOWLEDGED PATIENT CURRENT CONDITION AND STATES , INFORMED OF PATIENT PICKUP FROM THE [facility] AT 1:30PM . SALMA FORDE ACKNOWLEDGED RN WILL CONTINUE TO FOLLOW
[2016-11-23 12:00] VITALS: BP 104/69
--- NOTE | 2016-11-23 14:31 | NUR ---
RN NOTE PATIENT DISCHARGE MIDLINE REMOVED BY CHARGE NURSE SOON. PARAMEDICS GIVEN REPORT . PT STABLE UPON DISCHARGE VITALS ASSESSED
== END 2016-11-23 14:27 | DRG 130 ==
LOC: ER 12:33 → TELE1 15:17 → ICU 16:56 → TELE-TD 11-13 11:00 → TELE1 11-15 09:52
PROVIDERS: ADMIT Internal Medicine; ATTEND Internal Medicine
PROC: 5A09457 Assistance with Respiratory Ventilation, 24-96 Consecutive Hours, Continuous Positive Airway Pressure (ICD-10-PCS; principal; 2016-11-06)
PROC: 5A1955Z Respiratory Ventilation, Greater than 96 Consecutive Hours (ICD-10-PCS; 2016-11-16)
PROC: 0DH63UZ Insertion of Feeding Device into Stomach, Percutaneous Approach (ICD-10-PCS; 2016-11-20)
PROC: 05H533Z Insertion of Infusion Device into Right Subclavian Vein, Percutaneous Approach (ICD-10-PCS; 2016-11-22)
DX: J69.0 Pneumonitis due to inhalation of food and vomit (principal); I21.4 Non-ST elevation (NSTEMI) myocardial infarction; J96.21 Acute and chronic respiratory failure with hypoxia; G93.40 Encephalopathy, unspecified; G93.1 Anoxic brain damage, not elsewhere classified; G91.9 Hydrocephalus, unspecified; R13.10 Dysphagia, unspecified; Z99.11 Dependence on respirator [ventilator] status; J96.00 Acute respiratory failure, unspecified whether with hypoxia or hypercapnia; J96.22 Acute and chronic respiratory failure with hypercapnia; E78.5 Hyperlipidemia, unspecified; Z93.3 Colostomy status; Z93.0 Tracheostomy status; Z88.1 Allergy status to other antibiotic agents; Z87.01 Personal history of pneumonia (recurrent); Z86.74 Personal history of sudden cardiac arrest; Z86.718 Personal history of other venous thrombosis and embolism; Z87.891 Personal history of nicotine dependence; Z79.899 Other long term (current) drug therapy; Z79.82 Long term (current) use of aspirin; N39.0 Urinary tract infection, site not specified; K29.70 Gastritis, unspecified, without bleeding; I73.9 Peripheral vascular disease, unspecified; I25.10 Atherosclerotic heart disease of native coronary artery without angina pectoris; I69.354 Hemiplegia and hemiparesis following cerebral infarction affecting left non-dominant side; E87.2 Acidosis; R32 Unspecified urinary incontinence; Z87.440 Personal history of urinary (tract) infections; J20.9 Acute bronchitis, unspecified; G93.89 Other specified disorders of brain; D75.1 Secondary polycythemia; I25.2 Old myocardial infarction; E46 Unspecified protein-calorie malnutrition; Z22.322 Carrier or suspected carrier of Methicillin resistant Staphylococcus aureus
CPT/HCPCS: 31720; 36415; 36569; 36600; 43246; 70450-TC; 71010-TC; 80048-TC; 80053-TC; 82803-TC; 82962-TC; 83735-TC; 83880; 84100-TC; 84443-TC; 84484-TC; 85025-TC; 85378-TC; 85730-TC; 86850-TC; 87081-TC; 92526; 92611-TC; 93307-TC; 94002-TC; 94003-TC; 94640-TC; 94664-TC; 94762-TC; 94799-TC; A4606; A4624; A6248; A6253; A6402; A7526; C9113; J0456; J0690; J0696; J1650; J2543; J2704; J3490; J7040; J7050; J7060; Z7610

== ENCOUNTER 2018-09-08 16:17 | Inpatient (IN) | payer OTHER ==
[~2018-09-08] VITALS: Ht 182.9 cm; Wt 91.6 kg
[~2018-09-08 16:17] MED LIST: ACET325T53 PO; ASPI-1169 GT; BROM1.7D9 EACHEYE; CHOL200026 PO; DOCU250C14 PO; LISI10TA59 PO; OMEP20CA10 PO; PRAV20TA PO; RANI150T43 PO; TYL2T PO
--- NOTE | 2018-09-08 16:20 | NUR ---
ANIRUDH PA FRM SNF FOR BLOOD IN STOOL EPISODE TODAY. PATIENT PLACED ON THE MONITOR, BREATHING EVEN AND UNLABORED, NO DISTRESS NOTED. WILL MONITOR
[2018-09-08 17:37] LABS: BILIRUBIN,DIRECT 0.1 mg/dL (0.0-0.2); BILIRUBIN,TOTAL 0.3 mg/dL (0.2-1.0); CALCIUM, SERUM 8.9 mg/dL (8.5-10.1); CREATININE 0.7 mg/dL (0.6-1.3); POTASSIUM 4.9 mmol/L (3.5-5.1); TOTAL PROTEIN, SERUM 7.6 g/dL (6.4-8.2)
[2018-09-08 18:12] LABS: BASOPHILS % (AUTO) 0.5 % (0.0-2.0); EOSINOPHILS % (AUTO) 0.7 % (0.0-6.0); HEMATOCRIT 22 % (39-51); LYMPHOCYTES # (AUTO) 1.4 /CMM (0.8-4.8); LYMPHOCYTES % (AUTO) 24.6 % (20.0-44.0); MEAN CORPUSCULAR HGB CONC 31 g/dl (31.0-36.0); MEAN CORPUSCULAR VOLUME 94 fL (80-96); MONOCYTES # (AUTO) 1.3 /CMM (0.1-1.30); MONOCYTES % (AUTO) 22.8 % (2.0-12.0); NEUTROPHILS # (AUTO) 2.8 /CMM (1.8-8.9); NEUTROPHILS % (AUTO) 51.4 % (43.0-81.0); PLATELET COUNT (AUTO) 120 /CMM (150-450); RED BLOOD CELL COUNT(AUTO) 2.33 MIL/uL (4.5-6.0); WHITE BLOOD COUNT (AUTO) 5.5 K/uL (4.3-11.0)
[2018-09-08 18:16] LABS: HEMOGLOBIN 6.9 g/dL (13.5-17.5)
--- NOTE | 2018-09-08 18:23 | NUR ---
GAETANO MALDONADO, DR. FLORES ON-CALL, KATHLEEN MALDONADO SPOKE WITH DR. WELLS RE: ADMISSION.
--- NOTE | 2018-09-08 18:52 | NUR ---
AWAITING FOR INSURANCE APPROVAL AND FOR CHILDREN'S AIDE TO CALL BACK
[2018-09-08] MEDS ORDERED: IPRA0.2S9 IH (19:08)
[2018-09-08] MEDS ORDERED: ATOR10TA GT (19:08)
[2018-09-08] MEDS ORDERED: BENA10TA9 GT (19:08)
[2018-09-08] MEDS ORDERED: ALBU2.5V38 IH (19:08)
[2018-09-08] MEDS ORDERED: NA P133E RC (19:08)
[2018-09-08] MEDS ORDERED: ACET160L33 GT (19:08)
[2018-09-08] MEDS ORDERED: BISA10SU61 RC (19:08)
[2018-09-08] MEDS ORDERED: ACET160S GT (19:08)
[2018-09-08] MEDS ORDERED: MAGN400O6 GT (19:08)
[2018-09-08] MEDS ORDERED: LEVE100S2 GT (19:08)
[2018-09-08] MEDS ORDERED: FINA5TAB3 GT (19:08)
[2018-09-08] MEDS ORDERED: HEPA50008 SQ (19:08)
[2018-09-08] MEDS ORDERED: LACT100027 GT (19:08)
--- NOTE | 2018-09-08 19:26 | NUR ---
ENDORSED TO KYMBERLY MARSH FOR CLAUDIA.
--- NOTE | 2018-09-08 19:39 | NUR ---
PAGED DR BAUM
[2018-09-08 20:00] VITALS: BP 115/74
--- NOTE | 2018-09-08 20:08 | NUR ---
REPORT GIVEN TO SALMA AMES FOR BED 106.
[2018-09-08 20:23] LABS: BAND % (MANUAL) 11 % (0.0-5.0); LYMPHOCYTES % (MANUAL) 26 % (16-48); MONOCYTES % (MANUAL) 19 % (0-11.0); NEUTROPHILS % (MANUAL) 44 (42-76)
--- NOTE | 2018-09-08 20:25 | NUR ---
TELE/RN NOTED 53 YEARS OLD MALE, PATIENT ADMITTED TO TELE FLOOR WITH THE DIAGNOSIS OF GI BLEEDING. UPON ADMISSION PATIENT NOTED WITH NO S/S OF ACUTE DISTRESS. PATIENT UNTENDED, VENT DEPENDANT. BREATHING EVEN AND UNLABORED. PATIENT NOTED WITH NO S/S OF PAIN OR DISCOMFORT AT THIS TIME. TRACH, PATENT, CONNECTED TO VENT BY RT WITH PRESCRIBED SETTING, WITH SATURATION OF 98%. IV SITE ON L FOOT 18 GAUGE NOTED WITH NO S/S OF INFECTION OR INFILTRATION. FLUSHED WITH NS. PATIENT INITIAL VS OBTAINED AT THIS TIME, PATIENT NOTED WITH LOW TEMP 92.4. KEPT PATIENT WARM WITH SHEILA HUGGER. SKIN CARE PROVIDED. ADMISSION PROTOCOL FOLLOWED. SAFETY MAINTAINED. CALL LIGHT WITHIN REACH. WILL CONTINUE TO MONITOR PATIENT PER PLAN OF CARE
--- NOTE | 2018-09-08 20:25 | NUR ---
PT TRANSFERRED PER ACLS PROTOCOL.
[2018-09-08 20:35] VITALS: BP 114/76
[2018-09-08] MEDS ORDERED: NA PHOS,M-B/NA PHOS,DI-BA 1 EA ENEMA RC PRN (21:30)
[2018-09-08] MEDS ORDERED: MAGNESIUM HYDROXIDE 30 ML UDC GT PRN (21:30)
[2018-09-08] MEDS ORDERED: BISACODYL SUPP (10 MG) 10 MG/SUPP.RECT SUPP.RECT RC PRN (21:30)
[2018-09-08] MEDS ORDERED: ACETAMINOPHEN LIQUID 160 MG/5 ML BOTTLE GT PRN (21:30)
--- NOTE | 2018-09-08 22:45 | NUR ---
CALLED MED SPA MANAGER KATHLEEN MALDONADO AT THIS TIME, VERIFIED ADMISSION ORDERS. VERBAL ORDERS READ BACK.
[2018-09-08] MEDS: JEVITY 1.2 CAL 1,000 ML BOTTLE GT PRN (22:58)
[2018-09-08] MEDS: ATORVASTATIN 10 MG TABLET GT SCH (22:58)
[2018-09-09] VITALS (13 sets, daily range): BP systolic 87–124; BP diastolic 43–82
[2018-09-09] MEDS: ALBUTEROL FS 2.5 MG/0.5 ML VIAL.NEB NEB SCH ×4 (01:31→19:48)
[2018-09-09] MEDS: IPRATROPIUM NEB FS 0.5 MG/2.5 ML AMPUL.NEB IH SCH ×4 (01:31→19:48)
--- NOTE | 2018-09-09 04:15 | NUR ---
[facility] MODE. NO RESP DISTRESS OR SOB NOTED. SX'D FOR MOD AMT OF PALE YELLOW SECRETIONS. TRACH IS PATENT AND SECURED. ALARMS ARE SET AND AUDIBLE. VENT PLUGGED INTO RED OUTLET. AMBU BAG BEDSIDE. WILL CONTINUE TO MONITOR. Addendum: 09/09/18 at 0416 by KAREN DIAZ RT Amended: Links added.
--- NOTE | 2018-09-09 05:54 | NUR ---
RN/TELE NOTES: PT. RECEIVED 1 UNITS OF PRBC W/ NO ADVERSE REACTION NOTED. VSS WNL. INCONTINENT CARE RENDERED. TEMP OF 97.9. TURNED AND REPOSITIONED Q 2HRS. HOB ELEVATED. WILL CONTINUE TO MONITOR.
--- NOTE | 2018-09-09 06:39 | NUR ---
TELE/RN NOTES PATIENT IN NO DISTRESS. KEPT PATIENT CLEAN AND DRY. GOOD INCONTINENT CARE RENDERED. ALL NEED METS. ALL DUE MEDS GIVEN ORDERED. NO S/S OF PAIN OR DISCOMFORT NOTED. SAFETY MAINTAINED. CALL LIGHT WITHIN REACH. WILL ENDORSE TO AM NURSE FOR CONTINUITY OF CARE
[2018-09-09] MEDS ORDERED: ACETAMINOPHEN 650 MG/20.3 ML UDC GT PRN (07:30)
--- NOTE | 2018-09-09 07:30 | NUR ---
RESIDENT HALL DIRECTOR AM NOTES RECEIVED PT IN BED. OBTUNDED, PORTEX 7 TO MECH VENT WITH SETTING ORDERED. NO RESPIRATORY DISTRESS NOTED. RESPIRATION EVEN AND UNLABORED, ON TELE MONITOR SB HR 50s-60s. NO SIGNS OF PAIN, LEFT FOOT IV ACCESS FLUSHES WELL, SITE CLEAR, G TUBE FEEDING ONGOING AT 50 ML/HR, NO RESIDUAL NOTED. CONDOM CATH DRAINING YELLOW URINE. HEAD OF BED ELEVATED. SIDE RAILS UP. CALL LIGHT WITHIN REACH. BED ALARM ON. SEE NURSING FLOWSHEET FOR SKIN ISSUES. WILL TURN AND REPOSITION Q HOURS. WILL CONTINUE TO PERFORM PRESCRIBED WOUND TREATMENT ORDERED.WILL CONTINUE TO MONITOR PT CLOSELY.
[2018-09-09] MEDS: FINASTERIDE (5 MG) 5 MG TABLET GT SCH (08:59)
[2018-09-09] MEDS ORDERED: LEVETIRACETAM (250 MG) 250 MG TABLET PO SCH (09:00)
[2018-09-09] MEDS ORDERED: ACETAMINOPHEN LIQUID 160 MG/5 ML BOTTLE GT ONE (09:00)
[2018-09-09] MEDS: BENAZEPRIL HCL 10 MG TABLET GT SCH (09:00)
--- NOTE | 2018-09-09 09:30 | NUR ---
PACKAGE MAKER NOTES DUE MEDS GIVEN
[2018-09-09] MEDS ORDERED: PANTOPRAZOLE 40 MG/PACK PACK GT SCH (15:34)
--- NOTE | 2018-09-09 16:14 | NUR ---
Patient is trach/vent dependent,resident of [facility] [phone].He is bedfast,totally dependent with adl's. Current dc plan is to return to SNF/[facility] when discharge. Addendum: 09/09/18 at 1615 by ARINA GUADALUPE RN Amended: Links added.
[2018-09-09] MEDS: IV NS 0.9% 1,000 ML IV PRN (17:51)
[2018-09-09] MEDS: JEVITY 1.2 CAL 1,000 ML BOTTLE GT PRN (17:58)
[2018-09-09 18:54] LABS: BASOPHILS # (AUTO) 0.1 /CMM (0.0-0.2); BASOPHILS % (AUTO) 1.4 % (0.0-2.0); EOSINOPHILS % (AUTO) 0.3 % (0.0-6.0); HEMATOCRIT 25 % (39-51); LYMPHOCYTES # (AUTO) 1.6 /CMM (0.8-4.8); LYMPHOCYTES % (AUTO) 22.8 % (20.0-44.0); MEAN CORPUSCULAR HGB CONC 32 g/dl (31.0-36.0); MEAN CORPUSCULAR VOLUME 92 fL (80-96); MONOCYTES # (AUTO) 1.8 /CMM (0.1-1.30); MONOCYTES % (AUTO) 25.4 % (2.0-12.0); NEUTROPHILS # (AUTO) 3.5 /CMM (1.8-8.9); NEUTROPHILS % (AUTO) 50.1 % (43.0-81.0); PLATELET COUNT (AUTO) 155 /CMM (150-450); RED BLOOD CELL COUNT(AUTO) 2.69 MIL/uL (4.5-6.0)
--- NOTE | 2018-09-09 19:22 | NUR ---
CONVERTING TECHNICIAN CLOSING NOTES PT RESTING IN BED COMFORTABLY. OBTUNDED, [facility] WITH SETTING ORDERED. NO RESPIRATORY DISTRESS NOTED. RESPIRATION EVEN AND UNLABORED, ON TELE MONITOR SB HR 50s-60s. NO SIGNS OF PAIN, LEFT FOOT IV ACCESS FLUSHES WELL, LEFT HAND IV SITE WITH ONGOING NS AT 75 ML/HR BOTH SITES CLEAR, G TUBE FEEDING ONGOING AT 50 ML/HR, NO RESIDUAL NOTED. CONDOM CATH DRAINING YELLOW URINE 550 ML OUTPUT. HEAD OF BED ELEVATED. SIDE RAILS UP. CALL LIGHT WITHIN REACH. TURNED AND REPOSITIONED Q2 HOURS. ALL NEEDS MET. PM CARE. ENDORSED TO NEXT SHIFT FOR CLAUDIA.
--- NOTE | 2018-09-09 19:30 | NUR ---
DIRECTOR OF VOLUNTEER SERVICES NOTE PATIENT REPORT GIVEN BEDSIDE. PATIENT IN BED COMFORTABLE. PATIENT NONVERBAL A/O X 1. PATIENT ON VENT PRESCRIBED VENT SETTINGS TOLERATING WELL. NO S/S OF RESPIRATORY DISTRESS. PATIENT BREATHING EVEN/UNLABORED. PATIENT ON THE TELE MONITOR HR INTHE 60'S. PATIENT HAS NO S/S OF PAIN OR DISCOMFORT. PATIENT HAS L FOOT AND L HAND IV PATENT AND INTACT NO S/S OF INFILTRATION AND INFECTION. PATIENT HAS MINIMAL RESIDUAL WITH GTUBE AT 50 ML AN HR. CONDOM CATH DRAINING AND INTACT. HOB SEMI FOWLERS, PATIENT TURNED AND REPOSITIONED FOR COMFORT. ORAL CARE AND TRACH CARE GIVEN. RN WILL CONTINUE TO MONITOR.
[2018-09-09 20:19] LABS: IRON, SERUM 59 ug/dl (50-175); TOTAL IRON BINDING CAPACITY 316 ug/dl (250-450)
[2018-09-09] MEDS: CLOTRIMAZOLE 1% 15 GM TUBE TP SCH (20:27)
[2018-09-09] MEDS: Z GUARD REMEDY 2 OZ OINT TP SCH ×2 (20:27→20:57)
[2018-09-09 20:32] LABS: FERRITIN 206 ng/mL (8-388)
[2018-09-09] MEDS: LEVETIRACETAM (250 MG) 250 MG TABLET PO SCH (20:57)
[2018-09-09] MEDS: ATORVASTATIN 10 MG TABLET GT SCH (21:03)
[2018-09-09] MEDS: SUCRALFATE 1 G/10 ML UDC GT SCH (21:03)
[2018-09-10] VITALS (7 sets, daily range): BP systolic 106–138; BP diastolic 63–78
[2018-09-10] MEDS: ALBUTEROL FS 2.5 MG/0.5 ML VIAL.NEB NEB SCH ×4 (01:26→19:45)
[2018-09-10] MEDS: IPRATROPIUM NEB FS 0.5 MG/2.5 ML AMPUL.NEB IH SCH ×4 (01:26→19:45)
--- NOTE | 2018-09-10 07:05 | NUR ---
BRAND ADVOCATE NOTE PATIENT TOLERATED THE NIGHT WELL NO ACUTE CHANGES, PATIENT HAS NO S/S OF ACUTE DISTRESS. POC ENDORSED TO AM FOR CLAUDIA.
--- NOTE | 2018-09-10 07:15 | NUR ---
EXPERIMENTAL MECHANIC ELECTRICAL OPENING PT. IS NONVERBAL, UNABLE TO FOLLOW COMMAND. TRACH/VENT DEPENDANT. NO ACUTE DISTRESS NOTED, SPO2 ATTACHED AND AUDIBLE. TELE ATTACHED, SINUS RHYTHM HR 78. IV SITE ON LEFT HAND 20G C/D/I, NO SIGNS OF INFILTRATION. CONDOM CATHETER DRAINING CLEAR YELLOW URINE. WILL MONITOR FOR S/S BLEEDING. BED LOCKED, LOW, SIDE RAILS UPX2, CALL LIGHT WITHIN REACH. WILL CONTINUE TO MONITOR. Addendum: 09/10/18 at 8 by DANIEL RAINEY RN TUBE FEEDING RUNNING @50mL/HR VIA PEG.
[2018-09-10] MEDS ORDERED: PANTOPRAZOLE 40 MG VIAL IV SCH (09:00)
[2018-09-10] MEDS: Z GUARD REMEDY 2 OZ OINT TP SCH ×2 (09:07→21:12)
[2018-09-10] MEDS: CLOTRIMAZOLE 1% 15 GM TUBE TP SCH ×2 (09:07→17:00)
[2018-09-10] MEDS: SUCRALFATE 1 G/10 ML UDC GT SCH ×4 (09:13→21:12)
[2018-09-10] MEDS: IV NS 0.9% 1,000 ML IV PRN ×2 (09:13→22:37)
[2018-09-10] MEDS: FINASTERIDE (5 MG) 5 MG TABLET GT SCH (09:14)
[2018-09-10] MEDS: BENAZEPRIL HCL 10 MG TABLET GT SCH (09:14)
[2018-09-10] MEDS: LEVETIRACETAM (250 MG) 250 MG TABLET PO SCH ×2 (09:15→21:12)
[2018-09-10] MEDS: NEXIUM 40 MG VIAL IV SCH ×2 (09:15→16:46)
--- NOTE | 2018-09-10 10:32 | NUR ---
WOUND CARE CONSULT WOUND CARE RECEIVED CONSULT FOR BILATERAL TOES SCABS. WOUND CARE WILL DEFER CONSULT AND TREATMENT PLANS TO PLASTIC SURGICAL TEAM INCLUDING DPUziel PARKER WHO ARE ALL CURRENTLY FOLLOWING THIS PATIENT. PATIENT WITH LAVELL AT 9, ALL PRESSURE ULCER PREVENTION MEASURES ARE NOTED TO BE IN PLACE. WILL SEE PRN.
--- NOTE | 2018-09-10 19:00 | NUR ---
PUBLICITY DIRECTOR CLOSING NOTE NO SIGNIFICANT CHANGES THROUGHOUT SHIFT. NO ACUTE DISTRESS NOTED. ALL ORDERED MEDS GIVEN AND WOUND CARE RENDERED. NO RESIDUAL FROM PEG. REPORT GIVEN TO NOC RN FOR CLAUDIA.
--- NOTE | 2018-09-10 20:00 | NUR ---
MANAGER OUTPATIENT OPENING NOTES RECEIVED REPORT FROM DANIEL MARSH. PATIENT OBTUNDED, OPENS EYE SPONTANEOUSLY & RESPONDS TO TACTILE STIMULI. BREATHING EVEN & UNLABORED W/ TRACH INTACT & TOLERATING VENT SETTINGS AC 12, TV 500, FIO2 40%, PEEP 5. NO RESPIRATORY DISTRESS NOTED. ON TELE W/ SINUS RHYTHM, HR 69. RIGHT FOOT IV #18 INTACT & PATENT W/ DRESSING CDI & IVF NS INFUSING WELL @ 75 ML/HR. CONDOM CATH IN PLACE & DRAINING YELLOW URINE. G-TUBE PATENT & FLUSHING WELL, TOLERATING GTF JEVITY @ 50 ML/HR. NO RESIDUAL NOTED @ THIS TIME. NO S/S OF PAIN OR DISCOMFORT. SAFETY MEASURES IN PLACE W/ SIDE RAILS UP & BED ALARM ON. HOB ELEVATED. WILL CONTINUE TO MONITOR.
[2018-09-10] MEDS: JEVITY 1.2 CAL 1,000 ML BOTTLE GT PRN (20:13)
[2018-09-10] MEDS: ATORVASTATIN 10 MG TABLET GT SCH (21:12)
[2018-09-11] VITALS: BP 116/77
[2018-09-11] MEDS: ALBUTEROL FS 2.5 MG/0.5 ML VIAL.NEB NEB SCH ×4 (01:22→19:42)
[2018-09-11] MEDS: IPRATROPIUM NEB FS 0.5 MG/2.5 ML AMPUL.NEB IH SCH ×4 (01:22→19:42)
[2018-09-11 04:00] VITALS: BP 121/75
[2018-09-11] MEDS: SUCRALFATE 1 G/10 ML UDC GT SCH ×4 (07:30→21:42)
--- NOTE | 2018-09-11 07:48 | NUR ---
RN NOTE: PATIENT RECEIVED AWAKE, OBTUNDED, NON VERBAL, OPEN EYES TO VERBAL & TACTILE STIMULI. ON TELE MONITOR SINUS RHYTHM. NPO STATUS, PLAN FOR EGD TODAY. CONTINUE WITH IV FLUIDS ORDERED. SAFETY MEASURES OBSERVED. ASPIRATION PRECAUTIONS OBSERVED. CONTINUE WITH PLAN OF CARE.
[2018-09-11 08:00] VITALS: BP 126/72
[2018-09-11] MEDS: Z GUARD REMEDY 2 OZ OINT TP SCH ×2 (08:19→21:42)
[2018-09-11] MEDS: CLOTRIMAZOLE 1% 15 GM TUBE TP SCH ×2 (08:19→17:16)
[2018-09-11] MEDS: LEVETIRACETAM (250 MG) 250 MG TABLET PO SCH ×2 (09:00→21:41)
[2018-09-11] MEDS: FINASTERIDE (5 MG) 5 MG TABLET GT SCH (09:00)
[2018-09-11] MEDS: BENAZEPRIL HCL 10 MG TABLET GT SCH (09:00)
[2018-09-11] MEDS: NEXIUM 40 MG VIAL IV SCH ×2 (09:20→17:15)
[2018-09-11 12:00] VITALS: BP 120/77
[2018-09-11] MEDS: IV NS 0.9% 1,000 ML IV PRN (12:14)
--- NOTE | 2018-09-11 12:15 | NUR ---
RN NOTE: EGD PROCEDURE UPDATE PROCEDURE CANCEL FOR TODAY DUE TO CONSENT IS NOT SIGNED. DR. GALLEGOS MADE AWARE. PER DR. ERVIN CALL HIM ONCE CONSENT IS SIGNED BY TWO MDs. OK TO RESUME TUBE FEEDING NOW.
[2018-09-11 16:00] VITALS: BP 111/64
--- NOTE | 2018-09-11 17:55 | NUR ---
RN NOTE: PATIENT REMAINS ALERT, OBTUNDED, OPEN EYES TO VERBAL & TACTILE STIMULI. ON VENT-TRAC, SETTINGS TOLERATING WELL. NO SIGNIFICANT CHANGES NOTED DURING SHIFT. DR. ERVIN MADE AWARE BY DR. GALLEGOS ABOUT CONSENT SIGNED BY TWO MDs. CONSENT SIGNED BY DR. GALLEGOS & DR. AJ, OBTAINED BY LABEL DRIER. AT THIS TIME CONTINUE WITH TUBE FEEDING UNTIL FURTHER ORDERS. SAFETY MEASURES OBSERVED. CONTINUE TO MONITOR.
[2018-09-11 20:00] VITALS: BP 114/74
--- NOTE | 2018-09-11 20:00 | NUR ---
TONNY RN NOTE: PATIENT RECEIVED AWAKE, OBTUNDED, NON VERBAL, OPEN EYES TO VERBAL & TACTILE STIMULI. ON TELE MONITOR SINUS RHYTHM. ON JEVITY GTF AT 50ML/HR W/O ANY RESIDUAL NOTED.WITH IV FLUIDS ORDERED. PATIENT'S NA AND CL LEVELS ARE ELEVATED WITH IV FLUIDS OF 0.9% NS @75ML/HR . WILL CALL MD FOR NEW ORDERS. SAFETY MEASURES OBSERVED. ASPIRATION PRECAUTIONS OBSERVED. CONTINUE WITH ONGOING MONITORING AND PLAN OF CARE.
--- NOTE | 2018-09-11 20:18 | NUR ---
RN NOTES CALLED DR GALLEGOS ABOUT PATIENT'S Na 147 and Cl 110 AND CHANGE OF IV FLUIDS ARE IN PLACE. WILL CONTINUE TO MONITOR PATIENT CLOSELY.
[2018-09-11] MEDS: ATORVASTATIN 10 MG TABLET GT SCH (21:41)
[2018-09-11] MEDS: IV 1/2NS 1000 ML 1,000 ML IV PRN (21:41)
[2018-09-12] VITALS (12 sets, daily range): BP systolic 106–125; BP diastolic 57–77
[2018-09-12] MEDS: ALBUTEROL FS 2.5 MG/0.5 ML VIAL.NEB NEB SCH ×4 (02:22→20:07)
[2018-09-12] MEDS: IPRATROPIUM NEB FS 0.5 MG/2.5 ML AMPUL.NEB IH SCH ×4 (02:22→20:07)
--- NOTE | 2018-09-12 07:00 | NUR ---
MOTORCYLES FINAL INSPECTOR OPENING NOTES RECEIVED BEDSIDE REPORT. PATIENT IN BED OBTUNDED OPENS EYES SPONTANEOUSLY. ON VENT TOLERATING SETTINGS ORDER. NO SIGNS OR SYMPTOMS OF RESPIRATORY DISTRESS OR ACUTE PAIN. GTF RUNNING JEVITY 1.2 @ 50ML/HR TOLERATING WELL NO N/V/D NOTED NO RESIDUAL. IVF RUNNING TO L FOOT # 18 GAUGE 1/2 NS @ 75ML.HR. NO LABS DRAWN. SAFETY AND ASPIRATION PRECAUTIONS IN PLACE BED IN LOW POSITION CALL LIGHT WITHIN REACH WILL MONITOR APPROPRIATELY DURING SHIFT
[2018-09-12] MEDS: JEVITY 1.2 CAL 1,000 ML BOTTLE GT PRN (07:50)
[2018-09-12] MEDS: LEVETIRACETAM (250 MG) 250 MG TABLET PO SCH ×2 (08:35→21:00)
[2018-09-12] MEDS: SUCRALFATE 1 G/10 ML UDC GT SCH ×4 (08:35→21:00)
[2018-09-12] MEDS: BENAZEPRIL HCL 10 MG TABLET GT SCH (08:36)
[2018-09-12] MEDS: FINASTERIDE (5 MG) 5 MG TABLET GT SCH (08:36)
[2018-09-12] MEDS: CLOTRIMAZOLE 1% 15 GM TUBE TP SCH ×2 (08:37→16:55)
[2018-09-12] MEDS: Z GUARD REMEDY 2 OZ OINT TP SCH ×2 (08:38→21:01)
--- NOTE | 2018-09-12 11:00 | NUR ---
ROUNDS DONE WITH NO ACTIVE BLEEDING AT THIS TIME . ORDERS FOR LABS IF NO CHANGES DR ORANTES TO DISCHARGE BACK TO FACILITY
[2018-09-12 11:56] LABS: ALBUMIN 1.7 g/dL (3.4-5.0); BILIRUBIN,TOTAL 0.4 mg/dL (0.2-1.0); CALCIUM, SERUM 8.1 mg/dL (8.5-10.1); CREATININE 0.7 mg/dL (0.6-1.3); POTASSIUM 3.7 mmol/L (3.5-5.1); TOTAL PROTEIN, SERUM 6.7 g/dL (6.4-8.2)
[2018-09-12 12:02] LABS: BASOPHILS % (AUTO) 0.3 % (0.0-2.0); EOSINOPHILS % (AUTO) 0.7 % (0.0-6.0); LYMPHOCYTES # (AUTO) 1.7 /CMM (0.8-4.8); LYMPHOCYTES % (AUTO) 27.6 % (20.0-44.0); MEAN CORPUSCULAR HGB CONC 31 g/dl (31.0-36.0); MEAN CORPUSCULAR VOLUME 94 fL (80-96); MONOCYTES # (AUTO) 1.8 /CMM (0.1-1.30); MONOCYTES % (AUTO) 29.3 % (2.0-12.0); NEUTROPHILS # (AUTO) 2.6 /CMM (1.8-8.9); NEUTROPHILS % (AUTO) 42.1 % (43.0-81.0); PLATELET COUNT (AUTO) 217 /CMM (150-450); WHITE BLOOD COUNT (AUTO) 6.1 K/uL (4.3-11.0)
[2018-09-12] MEDS: NEXIUM 40 MG VIAL IV SCH ×2 (12:17→16:55)
[2018-09-12] MEDS: IV 1/2NS 1000 ML 1,000 ML IV PRN (12:26)
[2018-09-12 12:43] LABS: HEMATOCRIT 20 % (39-51); HEMOGLOBIN 6.1 g/dL (13.5-17.5)
--- NOTE | 2018-09-12 12:55 | NUR ---
CRITICAL LAB VALUE HGB 6.1 ORDERS TO TRANSFUSE 1 UNIT RBCS IF LESS THAN 7. PATIENT DX GI BLEED
--- NOTE | 2018-09-12 13:22 | NUR ---
PATIENT HAD LARGE LOOSE DARK STOOL. BLOOD NOTED IN STOOL
[2018-09-12 13:32] LABS: LYMPHOCYTES % (MANUAL) 20 % (16-48); MONOCYTES % (MANUAL) 31 % (0-11.0); NEUTROPHILS % (MANUAL) 49 (42-76)
--- NOTE | 2018-09-12 14:50 | NUR ---
VERIFIED BLOOD FROM BLOOD BANK. TRANSFUSION STARTED
--- NOTE | 2018-09-12 18:25 | NUR ---
PIPE STEM SAWYER NOTES PATIENT A/O X1 ABLE TO FOLLOW SOME COMMANDS. NO SIGNS OR SYMPTOMS OF RESPIRATORY DISTRESS TOLERATING VENT SETTINGS. NO ACUTE PAIN NOTED. I UNIT PRBCS GIVEN FOR HGB 6.1 PATIENT HAD 2X LARGE WATERY DARK BLOODY STOOL.CLEANED AND REPOSITIONED Q2HR.CONDOM CATH INTACT DRAINING CLEAR YELLOW URINE IVF TO LEFT FOOT # 18 GAUGE RUNNING 1/2 NS @ 75 ML/HR. GTF JEVITY 1.2 @ 50 ML/HR TOLERATING WELL WITH NO RESIDUAL. SAFETY AND ASPIRATION PRECAUTIONS IN PLACE ORAL AND TRACH CARE DONE. CALL LIGHT WITHIN REACH
--- NOTE | 2018-09-12 19:18 | NUR ---
REPORT ENDORSED TO NOC
--- NOTE | 2018-09-12 19:20 | NUR ---
ADMINISTRATIVE DIRECTOR NOTES PATIENT IN BED SLEEPING AT THIS TIME, ON MECHANICAL VENTILATOR, TOLERATED SETTINGS WELL, NO SIGNS OF SOB/OR RESPIRATORY DISTRESS, NO ACUTE PAIN NOTED, S/P I UNIT PRBCS GIVEN PER DAY SHIFT NURSE FOR HGB 6.1, CONDOM CATH INTACT DRAINING CLEAR YELLOW URINE, IV ACCESS LEFT FOOT # 18 GAUGE, IVF INFUSING WELL, AND PATIENT TOLERATED WELL, GT IN PLACED, INTACT AND PATENT,ON GTF JEVITY 1.2 @ 50 ML/HR TOLERATING WELL, WITH NO RESIDUAL NOTED AT THIS TIME, ALL NEEDS PROVIDED, SAFETY AND ASPIRATION PRECAUTIONS IN PLACE, SUCTIONED AT THI TIME, S/R OF BED UP ORDERED, CALL LIGHT WITHIN REACH, WILL CONTINUE TO MONITOR CLOSELY.
--- NOTE | 2018-09-12 20:07 | NUR ---
PT [facility] WITH NOTED SETTINGS. PT RESPONDS TO STIMULI WHEN SUCTION. BUSINESS BANKING MANAGER CUFF PRESSURE NOTED. NO RESP DISTRESS OR SOB NOTED AT THIS TIME . SX'D SMALL AMT OF PALE YELLOW SECRETIONS. ALARMS ARE SET AND AUDIBLE. VENT PLUGGED INTO RED OUTLET. AMBU BAG BEDSIDE. WILL CONTINUE TO MONITOR.
[2018-09-12] MEDS: ATORVASTATIN 10 MG TABLET GT SCH (21:01)
[2018-09-12 21:07] LABS: EOSINOPHILS % (AUTO) 0.6 % (0.0-6.0); HEMOGLOBIN 7.7 g/dL (13.5-17.5); WHITE BLOOD COUNT (AUTO) 6.7 K/uL (4.3-11.0)
[2018-09-12 21:16] LABS: BASOPHILS % (AUTO) 0.3 % (0.0-2.0); HEMATOCRIT 24 % (39-51); LYMPHOCYTES % (AUTO) 30.1 % (20.0-44.0); MEAN CORPUSCULAR HGB CONC 32 g/dl (31.0-36.0); MEAN CORPUSCULAR VOLUME 92 fL (80-96); MONOCYTES # (AUTO) 1.9 /CMM (0.1-1.30); MONOCYTES % (AUTO) 28.1 % (2.0-12.0); NEUTROPHILS # (AUTO) 2.8 /CMM (1.8-8.9); NEUTROPHILS % (AUTO) 40.9 % (43.0-81.0); PLATELET COUNT (AUTO) 219 /CMM (150-450)
[2018-09-12 21:45] LABS: EOSINOPHILS % (MANUAL) 1 % (0-4); LYMPHOCYTES % (MANUAL) 30 % (16-48); MONOCYTES % (MANUAL) 17 % (0-11.0); NEUTROPHILS % (MANUAL) 52 (42-76)
[2018-09-13] VITALS: BP 101/68
[2018-09-13] MEDS: IPRATROPIUM NEB FS 0.5 MG/2.5 ML AMPUL.NEB IH SCH ×4 (01:23→20:45)
[2018-09-13] MEDS: ALBUTEROL FS 2.5 MG/0.5 ML VIAL.NEB NEB SCH ×4 (01:23→20:45)
[2018-09-13 04:00] VITALS: BP 100/60
[2018-09-13] MEDS: IV 1/2NS 1000 ML 1,000 ML IV PRN ×2 (04:42→16:57)
[2018-09-13] MEDS: JEVITY 1.2 CAL 1,000 ML BOTTLE GT PRN (05:44)
--- NOTE | 2018-09-13 06:42 | NUR ---
PRINTING PRESS OPERATOR APPRENTICE NOTES PATIENT IN BED SLEEPING AT THIS TIME, ON MECHANICAL VENTILATOR, TOLERATED SETTINGS WELL, NO SIGNS OF SOB/OR RESPIRATORY DISTRESS, NO ACUTE PAIN NOTED, IV ACCESS LEFT FOOT # 18 GAUGE, IVF INFUSING WELL, AND PATIENT TOLERATED WELL, GT IN PLACED, INTACT AND PATENT,ON GTF JEVITY 1.2 @ 50 ML/HR TOLERATING WELL, WITH NO RESIDUAL NOTED AT THIS TIME, ALL NEEDS PROVIDED, SAFETY AND ASPIRATION PRECAUTIONS IN PLACE, S/R OF BED UP ORDERED, LAST HEMOGLOBIN LAST NIGHT 7.7, 2 BLACK TARRY BM DURING THIS SHIFT NO SIGNIFICANT CHANGE IN CONDITION, CALL LIGHT WITHIN REACH, WILL ENDORSE CONTINUITY OF CARE TO ONCOMING NURSE.
--- NOTE | 2018-09-13 07:21 | NUR ---
VASCULAR ULTRASOUND TECHNICIAN OPENING NOTES RECEIVED BEDSIDE REPORT. PATIENT IN BED A/O X1 FOLLOWS SOME SIMPLE COMMANDS ON VENT TOLERATING SETTINGS ORDER. NO SIGNS OR SYMPTOMS OF RESPIRATORY DISTRESS OR ACUTE PAIN. GTF RUNNING JEVITY 1.2 @ 50ML/HR TOLERATING WELL NO N/V/D NOTED NO RESIDUAL. IVF RUNNING TO L FOOT # 18 GAUGE 1/2 NS @ 75ML/HR CONDOM CATH DRAINING CLEAR YELLOW URINE LAST HGB 7.7 SAFETY AND ASPIRATION PRECAUTIONS IN PLACE BED IN LOW POSITION CALL LIGHT WITHIN REACH WILL MONITOR APPROPRIATELY DURING SHIFT
[2018-09-13] MEDS: SUCRALFATE 1 G/10 ML UDC GT SCH ×4 (07:42→21:09)
[2018-09-13 08:00] VITALS: BP 115/71
[2018-09-13] MEDS: LEVETIRACETAM (250 MG) 250 MG TABLET PO SCH ×2 (08:47→21:09)
[2018-09-13] MEDS: FINASTERIDE (5 MG) 5 MG TABLET GT SCH (08:47)
[2018-09-13] MEDS: NEXIUM 40 MG VIAL IV SCH ×2 (08:49→16:58)
[2018-09-13] MEDS: BENAZEPRIL HCL 10 MG TABLET GT SCH (08:49)
[2018-09-13] MEDS: CLOTRIMAZOLE 1% 15 GM TUBE TP SCH ×2 (08:51→16:58)
[2018-09-13] MEDS: Z GUARD REMEDY 2 OZ OINT TP SCH ×2 (08:51→21:09)
[2018-09-13 12:00] VITALS: BP 107/61
--- NOTE | 2018-09-13 12:01 | NUR ---
DR WADE TO SEE PATIENT AT BEDSIDE. ORDERS FOR EGD IN THE MORNING PATIENT TO NPO AFTER MIDNIGHT
[2018-09-13 16:00] VITALS: BP_SYST 109; BP_DIAS 61; BP_DIAS 65
--- NOTE | 2018-09-13 19:02 | NUR ---
APPLICATION SECURITY DEVELOPER NOTES PATIENT A/O X1 ABLE TO FOLLOW SOME COMMANDS. NO SIGNS OR SYMPTOMS OF RESPIRATORY DISTRESS TOLERATING VENT SETTINGS. NO ACUTE PAIN NOTED. NO LOOSE BLOODY STOOLS THIS SHIFT CLEANED AND REPOSITIONED Q2HR.CONDOM CATH INTACT DRAINING CLEAR YELLOW URINE IVF TO LEFT FOOT # 18 GAUGE RUNNING 1/2 NS @ 75 ML/HR. GTF JEVITY 1.2 @ 50 ML/HR TOLERATING WELL WITH NO RESIDUAL PATIENT TO BE NPO AFTER MIDNIGHT FOR EGD PER DR WADE CONSENT SIGNED BY 2 MDS IN CHART. SAFETY AND ASPIRATION PRECAUTIONS IN PLACE ORAL AND TRACH CARE DONE. CALL LIGHT WITHIN REACH
--- NOTE | 2018-09-13 19:18 | NUR ---
REPORT ENDORSED TO NOC
--- NOTE | 2018-09-13 19:30 | NUR ---
BUILDING CODE ADMINISTRATOR NOTES, PATIENT IN BED SLEEPING AT THIS TIME, ON MECHANICAL VENTILATOR, TOLERATED SETTINGS WELL, NO SIGNS OF SOB/OR RESPIRATORY DISTRESS, NO ACUTE PAIN NOTED, NO FACIAL GRIMACING NOTED, IV ACCESS LEFT FOOT # 18 GAUGE, IVF INFUSING WELL, AND PATIENT TOLERATED WELL, GT IN PLACED, INTACT AND PATENT,ON JEVITY 1.2 @ 50 ML/HR TOLERATING WELL, WITH NO RESIDUAL NOTED AT THIS TIME, ALL NEEDS PROVIDED, SAFETY AND ASPIRATION PRECAUTIONS IN PLACE,1/20 S/R OF BED UP , NO ACCUMULATION OF SECRETIONS NOTED AT THIS TIME, CALL LIGHT WITHIN REACH, WILL CONTINUE TO MONITOR CLOSELY.
[2018-09-13 20:00] VITALS: BP 117/69
[2018-09-13] MEDS: ATORVASTATIN 10 MG TABLET GT SCH (21:09)
[2018-09-14] VITALS: BP 117/73
[2018-09-14] MEDS: IPRATROPIUM NEB FS 0.5 MG/2.5 ML AMPUL.NEB IH SCH ×4 (01:58→19:50)
[2018-09-14] MEDS: ALBUTEROL FS 2.5 MG/0.5 ML VIAL.NEB NEB SCH ×4 (01:58→19:50)
[2018-09-14 04:00] VITALS: BP 122/74
--- NOTE | 2018-09-14 06:46 | NUR ---
MANAGER SALES AND MARKETING NOTES, PATIENT IN BED SLEEPING AT THIS TIME, ON MECHANICAL VENTILATOR, TOLERATED SETTINGS WELL, NO SIGNS OF SOB/OR RESPIRATORY DISTRESS, NO ACUTE PAIN NOTED, NO FACIAL GRIMACING NOTED, IV ACCESS LEFT FOOT # 18 GAUGE, IVF INFUSING WELL, AND PATIENT TOLERATED WELL, NPO SINCE MIDNIGHT FOR EGD TODAY, SAFETY AND ASPIRATION PRECAUTIONS IN PLACE,05/09 S/R OF BED UP , NO SIGNIFICANT CHANGE IN CONDITION DURING THE NIGHT, NO BM DURING THE NIGHT, CALL LIGHT WITHIN REACH, WILL ENDORSE CONTINUITY OF CARE TO ONCOMING NURSE.
[2018-09-14 08:00] VITALS: BP 97/57
--- NOTE | 2018-09-14 10:55 | NUR ---
Attempt to call senior care for any family member avaialble for patient. None available. Pablo Roy RN
[2018-09-14 12:00] VITALS: BP_SYST 105; BP_SYST 118; BP_DIAS 64; BP_DIAS 70
--- NOTE | 2018-09-14 12:05 | NUR ---
Patient to have procedure at this time. Medical necesity for procedure consent verified. Moderate sedation form signed. Pablo Roy RN
--- NOTE | 2018-09-14 13:05 | NUR ---
Duodenitis findings post procedure report regarding esophagogastroduodenoscopy. Patient tolerated well. Tube feeding resumed. Pablo Roy RN
[2018-09-14] MEDS: NEXIUM 40 MG VIAL IV SCH ×2 (14:15→18:33)
[2018-09-14] MEDS: FINASTERIDE (5 MG) 5 MG TABLET GT SCH (14:16)
[2018-09-14] MEDS: SUCRALFATE 1 G/10 ML UDC GT SCH ×4 (14:16→21:27)
[2018-09-14] MEDS: LEVETIRACETAM (250 MG) 250 MG TABLET PO SCH ×2 (14:20→20:56)
[2018-09-14] MEDS: BENAZEPRIL HCL 10 MG TABLET GT SCH (14:20)
[2018-09-14] MEDS: Z GUARD REMEDY 2 OZ OINT TP SCH ×2 (14:35→21:28)
[2018-09-14] MEDS: CLOTRIMAZOLE 1% 15 GM TUBE TP SCH ×2 (14:35→18:36)
[2018-09-14 16:00] VITALS: BP 118/64
--- NOTE | 2018-09-14 19:27 | NUR ---
Doctor Duran request for am CBC and possible discharge if patient is stable. Will endorse to night nurse for further care. Pablo Roy RN
[2018-09-14 20:00] VITALS: BP 121/70
[2018-09-14] MEDS: ATORVASTATIN 10 MG TABLET GT SCH (21:27)
[2018-09-15] VITALS: BP 115/64
[2018-09-15] MEDS: IPRATROPIUM NEB FS 0.5 MG/2.5 ML AMPUL.NEB IH SCH ×4 (01:18→19:53)
[2018-09-15] MEDS: ALBUTEROL FS 2.5 MG/0.5 ML VIAL.NEB NEB SCH ×4 (01:18→19:53)
[2018-09-15 04:00] VITALS: BP 111/72
--- NOTE | 2018-09-15 06:29 | NUR ---
HEALTH SERVICE COORDINATOR NOTES, PATIENT IN BED SLEEPING AT THIS TIME, ON MECHANICAL VENTILATOR, TOLERATED SETTINGS WELL, NO SIGNS OF SOB/OR RESPIRATORY DISTRESS, NO ACUTE PAIN NOTED, NO FACIAL GRIMACING NOTED, IV ACCESS LEFT FOOT # 18 GAUGE, IVF INFUSING WELL, AND PATIENT TOLERATED WELL, SAFETY AND ASPIRATION PRECAUTIONS IN PLACE,05/09 S/R OF BED UP , NO SIGNIFICANT CHANGE IN CONDITION DURING THE NIGHT, CALL LIGHT WITHIN REACH, WILL ENDORSE CONTINUITY OF CARE TO ONCOMING NURSE.
[2018-09-15 08:00] VITALS: BP 117/76
[2018-09-15] MEDS: LEVETIRACETAM (250 MG) 250 MG TABLET PO SCH (08:23)
[2018-09-15] MEDS: SUCRALFATE 1 G/10 ML UDC GT SCH ×3 (08:23→17:17)
[2018-09-15] MEDS: BENAZEPRIL HCL 10 MG TABLET GT SCH (08:23)
[2018-09-15] MEDS: FINASTERIDE (5 MG) 5 MG TABLET GT SCH (08:27)
[2018-09-15] MEDS: Z GUARD REMEDY 2 OZ OINT TP SCH ×2 (08:27→21:04)
[2018-09-15] MEDS: NEXIUM 40 MG VIAL IV SCH ×2 (08:27→17:17)
[2018-09-15] MEDS: CLOTRIMAZOLE 1% 15 GM TUBE TP SCH ×2 (08:27→17:17)
[2018-09-15 08:43] LABS: RED BLOOD CELL COUNT(AUTO) 2.59 MIL/uL (4.5-6.0); WHITE BLOOD COUNT (AUTO) 5.1 K/uL (4.3-11.0)
[2018-09-15 08:44] LABS: BASOPHILS % (AUTO) 0.6 % (0.0-2.0); EOSINOPHILS % (AUTO) 0.8 % (0.0-6.0); HEMATOCRIT 24 % (39-51); HEMOGLOBIN 7.5 g/dL (13.5-17.5); LYMPHOCYTES # (AUTO) 1.8 /CMM (0.8-4.8); MEAN CORPUSCULAR HGB CONC 31 g/dl (31.0-36.0); MEAN CORPUSCULAR VOLUME 93 fL (80-96); MONOCYTES # (AUTO) 1.2 /CMM (0.1-1.30); NEUTROPHILS % (AUTO) 38.6 % (43.0-81.0); PLATELET COUNT (AUTO) 309 /CMM (150-450)
[2018-09-15 10:21] LABS: BAND % (MANUAL) 1 % (0.0-5.0); EOSINOPHILS % (MANUAL) 1 % (0-4); LYMPHOCYTES % (MANUAL) 27 % (16-48); MONOCYTES % (MANUAL) 18 % (0-11.0); NEUTROPHILS % (MANUAL) 53 (42-76)
[2018-09-15 14:00] VITALS: BP 104/65
[2018-09-15 16:00] VITALS: BP 108/72
--- NOTE | 2018-09-15 19:00 | NUR ---
RIVET DRIVER OPENING NOTES PATIENT IN BED SLEEPING, BUT EASY TO AROUSE. ON TELE MONITOR SINUS LARA WITH HR 57. ON MECHANICAL VENTILATOR, TOLERATING SETTINGS WELL, NO SIGNS OF SOB/OR RESPIRATORY DISTRESS, NO ACUTE PAIN NOTED, NO FACIAL GRIMACING NOTED, IV ACCESS LEFT FOOT #18 GAUGE, IVF INFUSING WELL, AND PATENT. IV SITE C/D/I. SAFETY AND ASPIRATION PRECAUTIONS IN PLACE, CALL LIGHT WITHIN REACH, D/C ORDER NOTED. PER MATTEO WEST RN, PATIENT WILL BE TRANSFERRED BACK TO [facility], AMBULANCE ETA AT 2200. ALSO PER AM RN, EXIT CARE/DISCHARGE PROCESS DONE AND RECORDED. PATIENT HAS NO BELONGINGS NOTED. WILL CONT TO MONITOR PATIENT.
[2018-09-15 20:00] VITALS: BP 114/62
--- NOTE | 2018-09-15 20:00 | NUR ---
RT NOTE PATIENT RECEIVED TRACHED ON MECHANICAL VENTILATION. AMBU BAG @ BEDSIDE. CUFF CHECKED VIA SPECIAL EVENTS DRIVER. VENT PLUGGED TO RED OUTLET. ALARMS ON AND AUDIBLE. TX GIVEN, NO ADVERSE REACTIONS NOTED. SX DONE, SMALL THICK WHITE SECRETIONS NOTED. PATIENT STABLE, NO DISTRESS NOTED. Addendum: 09/15/18 at 2144 by SOHAM GEORGE RT Amended: Links added.
--- NOTE | 2018-09-15 21:05 | NUR ---
FILTRATION OPERATORENVELOPE ADJUSTER NOTES PATIENT STABLE. GAVE PT REPORT TO AMBULANCE PERSONNEL FOR CLAUDIA. PT LEFT THE UNIT WITH AMBULANCE PERSONNEL VIA GURNEY. EXIT CARE DONE.
== END 2018-09-15 21:44 | DRG 241 ==
LOC: ER 16:17 → TELE1 19:40
PROVIDERS: ADMIT Internal Medicine; ATTEND Internal Medicine
PROC: 5A1955Z Respiratory Ventilation, Greater than 96 Consecutive Hours (ICD-10-PCS; principal; 2018-09-08)
PROC: 30233N1 Transfusion of Nonautologous Red Blood Cells into Peripheral Vein, Percutaneous Approach (ICD-10-PCS; 2018-09-09)
PROC: 0DJ08ZZ Inspection of Upper Intestinal Tract, Via Natural or Artificial Opening Endoscopic (ICD-10-PCS; 2018-09-14)
DX: K29.80 Duodenitis without bleeding (principal); E43 Unspecified severe protein-calorie malnutrition; Z99.11 Dependence on respirator [ventilator] status; G93.40 Encephalopathy, unspecified; J90 Pleural effusion, not elsewhere classified; J96.11 Chronic respiratory failure with hypoxia; R53.2 Functional quadriplegia; Z93.0 Tracheostomy status; C61 Malignant neoplasm of prostate; G40.909 Epilepsy, unspecified, not intractable, without status epilepticus; I69.351 Hemiplegia and hemiparesis following cerebral infarction affecting right dominant side; L30.4 Erythema intertrigo; Z93.1 Gastrostomy status; K21.9 Gastro-esophageal reflux disease without esophagitis; B36.9 Superficial mycosis, unspecified; R13.10 Dysphagia, unspecified; Z87.440 Personal history of urinary (tract) infections; Z88.1 Allergy status to other antibiotic agents; Z79.51 Long term (current) use of inhaled steroids; Z79.899 Other long term (current) drug therapy; D69.6 Thrombocytopenia, unspecified; M24.572 Contracture, left ankle; M24.571 Contracture, right ankle; H54.7 Unspecified visual loss; I25.2 Old myocardial infarction; Z87.891 Personal history of nicotine dependence; I73.9 Peripheral vascular disease, unspecified; D68.9 Coagulation defect, unspecified; L98.9 Disorder of the skin and subcutaneous tissue, unspecified; E78.5 Hyperlipidemia, unspecified; D64.9 Anemia, unspecified; I50.9 Heart failure, unspecified; I11.0 Hypertensive heart disease with heart failure; D62 Acute posthemorrhagic anemia
CPT/HCPCS: 31720; 36415; 71045-TC; 80048-TC; 80053-TC; 80076-TC; 82728-TC; 83540-TC; 85025-TC; 85730-TC; 86850-TC; 86921-TC; 87081-TC; 94002-TC; 94003-TC; 94760-TC; 94762-TC; 94799-TC; 99082-TC; A4349; A6402; G0378; J2704; J3480; J3490; J7030; J7050; P9016-BL

== ENCOUNTER 2018-10-23 17:35 | Inpatient (IN) | payer OTHER ==
[~2018-10-23] VITALS: Ht 185.4 cm; Wt 90.7 kg
[~2018-10-23 17:35] MED LIST changes: +ACET160L33 GT; +ACET160S GT; -ACET325T53 PO; +ALBU2.5V38 IH; -ASPI-1169 GT; +ATOR10TA GT; +BENA10TA11 GT; +BISA10SU61 RC; -BROM1.7D9 EACHEYE; -CHOL200026 PO; -DOCU250C14 PO; +FINA5TAB3 GT; +IPRA0.2S9 IH; +LACT100027 GT; +LEVE100S2 GT; -LISI10TA59 PO; +MAGN400O6 GT; +NA P133E RC; -OMEP20CA10 PO; -PRAV20TA PO; -RANI150T43 PO; -TYL2T PO
[2018-10-23] MEDS ORDERED: LORAZEPAM INJ 2 MG/ML VIAL ONE (17:45)
--- NOTE | 2018-10-23 17:54 | NUR ---
PT BIBRA FROM SNF FOR MULTIPLE SEIZURES TODAY, PER REPORT FROM LONG TERM GIVEN ATIVAN IVP, RA GAVE VERSED IVP MAINTENANCE SHOP MANAGER; PT AAOX0, AROUSABLE TO PAINFUL STIMULI, PT ON MONITOR, SEIZURE PRECAUTIONS STARTED. R HAND 20G STARTED, LABS DRAWN, RT AND MD AT BEDSIDE.
[2018-10-23 17:55] LABS: BASOPHILS % (AUTO) 0.4 % (0.0-2.0); EOSINOPHILS % (AUTO) 0.2 % (0.0-6.0); HEMATOCRIT 25 % (39-51); HEMOGLOBIN 7.7 g/dL (13.5-17.5); LYMPHOCYTES # (AUTO) 0.9 /CMM (0.8-4.8); LYMPHOCYTES % (AUTO) 20.8 % (20.0-44.0); MEAN CORPUSCULAR HGB CONC 31 g/dl (31.0-36.0); MEAN CORPUSCULAR VOLUME 96 fL (80-96); MONOCYTES # (AUTO) 0.4 /CMM (0.1-1.30); MONOCYTES % (AUTO) 9.9 % (2.0-12.0); NEUTROPHILS # (AUTO) 3.1 /CMM (1.8-8.9); NEUTROPHILS % (AUTO) 68.7 % (43.0-81.0); PLATELET COUNT (AUTO) 136 /CMM (150-450); RED BLOOD CELL COUNT(AUTO) 2.65 MIL/uL (4.5-6.0); WHITE BLOOD COUNT (AUTO) 4.6 K/uL (4.3-11.0)
--- NOTE | 2018-10-23 17:55 | NUR ---
RT NOTE RECEIVED PT BEING BAGGED BY PARAMEDICS. NO ORDERS ENDORSED BY PARAMEDICS. PT HAS PORTEX [address] TRACH TUBE MIDLINE AND SECURE. CUFF INFLATED. VENT SETTINGS FOLLOW AC 16 550 40% +5. ALARMS SET PER PROTOCOL AND AUDIBLE. VENT PLUGGED IN TO RED OUTLET. AMBU BAG AT BED SIDE. NO DISTRESS NOTED AT MOMENT. Addendum: 10/23/18 at 1757 by JETT RANDOLPH RT Amended: Links added.
[2018-10-23] MEDS ORDERED: LORAZEPAM INJ 2 MG/ML VIAL IVP ONE (18:00)
[2018-10-23 18:04] LABS: CALCIUM, SERUM 9.2 mg/dL (8.5-10.1); CREATININE 0.6 mg/dL (0.6-1.3); POTASSIUM 4.3 mmol/L (3.5-5.1)
[2018-10-23] MEDS ORDERED: AMIN30LI27 GT (18:43)
[2018-10-23] MEDS ORDERED: SENN-168 GT (18:43)
[2018-10-23] MEDS ORDERED: LORA2VIA11 IM (18:43)
[2018-10-23] MEDS ORDERED: ALBU2.5V38 IH (18:43)
[2018-10-23] MEDS ORDERED: FURO-145 GT (18:43)
[2018-10-23] MEDS ORDERED: VALP250S4 GT (18:43)
[2018-10-23] MEDS ORDERED: IPRA0.2S9 IH (18:43)
[2018-10-23] MEDS ORDERED: ACET-2070 GT (18:43)
[2018-10-23] MEDS ORDERED: LANS30CA56 GT (18:43)
--- NOTE | 2018-10-23 19:08 | NUR ---
CALLED DR LEENA FLORES OFFICE, PAGED THE MORTGAGE BROKER, AWAITING CALL BACK.
--- NOTE | 2018-10-23 20:49 | NUR ---
report given to casimiro reynoso for alla; pt will be transported to 1st floor via acls protocol
--- NOTE | 2018-10-23 21:02 | NUR ---
PER ADMITTING DEPT, INSURANCE STILL NEEDS TO GET APPROVAL. WILL TRANSFER ONCE INSURANCE IS VERIFIED.
--- NOTE | 2018-10-23 22:46 | NUR ---
PT TRANSPORTED TO 1ST FLOOR VIA ACLS PROTOCOL
[2018-10-23 23:30] VITALS: BP 129/84
[2018-10-23] MEDS ORDERED: LORAZEPAM INJ 2 MG/ML VIAL IV PRN (23:30)
[2018-10-24] VITALS: BP 129/84
[2018-10-24] MEDS: JEVITY 1.2 CAL 1,000 ML BOTTLE GT PRN
[2018-10-24] MEDS ORDERED: ALBUTEROL FS 2.5 MG/3 ML VIAL.NEB NEB PRN ×2 (00:30→08:00)
[2018-10-24] MEDS ORDERED: JEVITY 1.2 CAL 1,000 ML BOTTLE GT PRN (00:30)
[2018-10-24] MEDS ORDERED: IPRATROPIUM NEB FS 0.5 MG/2.5 ML AMPUL.NEB NEB PRN (00:30)
--- NOTE | 2018-10-24 01:07 | NUR ---
CALLED MD, SPOKE WITH DR PERALTA AND RELAYED PATIENT STILL HAS NON STOP FACIAL OF LEFT FOOT TWITCHING. OBTAINED ORDER TO CHANGE ATIVAN FROM 1MG TO 0.5MG EVERY 4 HOURS PRN. NOTED AND CARRIED OUT.
[2018-10-24] MEDS: IPRATROPIUM NEB FS 0.5 MG/2.5 ML AMPUL.NEB NEB SCH ×4 (01:11→19:42)
[2018-10-24] MEDS: ALBUTEROL FS 2.5 MG/3 ML VIAL.NEB NEB SCH ×4 (01:11→19:43)
[2018-10-24 04:00] VITALS: BP 122/74
[2018-10-24 06:37] LABS: CARBAMAZEPINE (TEGRETOL) 0.1 ug/ml (4-11.9)
[2018-10-24 06:41] LABS: BASOPHILS % (AUTO) 0.2 % (0.0-2.0); EOSINOPHILS % (AUTO) 0.1 % (0.0-6.0); HEMATOCRIT 27 % (39-51); HEMOGLOBIN 8.2 g/dL (13.5-17.5); MEAN CORPUSCULAR HGB CONC 31 g/dl (31.0-36.0); MEAN CORPUSCULAR VOLUME 95 fL (80-96); MONOCYTES # (AUTO) 0.9 /CMM (0.1-1.30); MONOCYTES % (AUTO) 12.3 % (2.0-12.0); NEUTROPHILS # (AUTO) 5.1 /CMM (1.8-8.9); NEUTROPHILS % (AUTO) 73.4 % (43.0-81.0); PLATELET COUNT (AUTO) 160 /CMM (150-450); RED BLOOD CELL COUNT(AUTO) 2.81 MIL/uL (4.5-6.0)
[2018-10-24 06:44] LABS: CALCIUM, SERUM 9.5 mg/dL (8.5-10.1); CREATININE 0.9 mg/dL (0.6-1.3); POTASSIUM 4.1 mmol/L (3.5-5.1)
--- NOTE | 2018-10-24 07:30 | NUR ---
RN NOTES RECEIVED PATIENT IN BED, OBTUNDED, TRACH AND VENT DEPENDENT, TRACH AT MIDLINE POSITION. TOLERATING CURRENT VENT SETTINGS. NOT ON ANY FORM OF DISTRESS. APPEARS COMFORTABLE IN BED. SR WITH HR ON THE 70'S ON THE MONITOR. GT IN PLACE, PLACEMENT CONFIRMED BY ASPIRATING GASTRIC CONTENT AND AUSCULTATION. NO GASTRIC RESIDUAL TAKEN AT THIS TIME. WITH ONGOING JEVITY 1.2 AT 65 CC/HR. IV ACCESS LINES ON THE RH G 22 AND LH G [address] INTACT[address] DRESSING CDI. SEIZURE AND ASPIRATION PRECAUTION PUT IN PLACE. SAFETY MEASURES OBSERVED AND MAINTAINED, CALL LIGHT PLACED WITHIN REACH. WILL CONTINUE TO MONITOR AND ANTICIPATE NEEDS Addendum: 10/24/18 at 1823 by CHAPARRO MATT RN FEEDING RUNNING AT 45CC/HR
[2018-10-24 08:00] VITALS: BP 110/64
[2018-10-24] MEDS ORDERED: MAGNESIUM HYDROXIDE 30 ML UDC GT PRN (08:00)
[2018-10-24] MEDS ORDERED: BISACODYL SUPP (10 MG) 10 MG/SUPP.RECT SUPP.RECT RC PRN (08:00)
[2018-10-24] MEDS ORDERED: LORAZEPAM INJ 2 MG/ML VIAL IM PRN (08:00)
[2018-10-24] MEDS ORDERED: NA PHOS,M-B/NA PHOS,DI-BA 1 EA ENEMA RC PRN (08:00)
[2018-10-24] MEDS ORDERED: IPRATROPIUM NEB FS 0.5 MG/2.5 ML AMPUL.NEB IH PRN (08:00)
--- NOTE | 2018-10-24 08:00 | NUR ---
RN NOTES TWITCHING OF THE FACE NOTED THAT LASTED APPROXIMATELY 10 SECONDS. NO MEDICATION GIVEN AT THIS TIME BUT PATIENT KEPT MONITORED
[2018-10-24] MEDS ORDERED: ACETAMINOPHEN 650 MG/20.3 ML UDC GT PRN (08:30)
[2018-10-24] MEDS ORDERED: LEVETIRACETAM SOL (5 ML) 100 MG/ML UDC GT SCH (09:00)
[2018-10-24] MEDS: PANTOPRAZOLE 40 MG/PACK PACK GT SCH (09:19)
[2018-10-24] MEDS: FINASTERIDE (5 MG) 5 MG TABLET GT SCH (09:19)
[2018-10-24] MEDS: BENAZEPRIL HCL 10 MG TABLET GT SCH (09:19)
[2018-10-24] MEDS: FUROSEMIDE 20 MG TABLET GT SCH (09:19)
[2018-10-24] MEDS ORDERED: LEVETIRACETAM (500MG) 500 MG in IV NS 0.9% 100 ML IV ONE (09:30)
[2018-10-24] MEDS: LORAZEPAM INJ 2 MG/ML VIAL IV PRN ×2 (10:32→20:01)
--- NOTE | 2018-10-24 11:00 | NUR ---
RN NOTES TWITCHING OF THE FACE NOTED THAT LASTED APPROXIMATELY 30 SECOND. PRN LORAZEPAM GIVEN AT THIS POINT. CHARGE NURSE, SOON RN AT BEDSIDE TOO. PATIENT KEPT THERMOREGULATED AND MONITORED.
[2018-10-24 12:00] VITALS: BP 118/67
[2018-10-24] MEDS: VALPROIC ACID 250 MG/5 ML UDC GT SCH ×2 (13:13→21:07)
[2018-10-24] MEDS ORDERED: ALBUTEROL FS 2.5 MG/3 ML VIAL.NEB NEB SCH (13:30)
[2018-10-24] MEDS ORDERED: IPRATROPIUM NEB FS 0.5 MG/2.5 ML AMPUL.NEB IH SCH (13:30)
[2018-10-24 16:00] VITALS: BP 122/72
[2018-10-24] MEDS: PROSOURCE / PROSTAT (PYXIS) 30 ML UDC GT SCH (16:52)
--- NOTE | 2018-10-24 19:30 | NUR ---
RN NOTES ENDORSED PATIENT FOR CONTINUITY OF CARE. NO ACUTE CHANGES WITHIN THE SHIFT. PATIENT NOT ON ANY KIND OF DISTRESS. SAFETY MEASURES IN PLACE AT ALL TIMES. CALL LIGHT WITHIN REACH. ALL NURSING NEEDS ATTENDED AND MET
--- NOTE | 2018-10-24 19:35 | NUR ---
TELE/RN OPENING NOTES PT RECEIVED RESTING COMFORTABLY IN BED. OBTUNDED. VENT DEPENDENT WITH SETTINGS AC12, TV 500, FIO2 40%, PEEP 5. ON TELE MONITOR SHOWING SR 82. GT FEEDING RUNNING JEVITY AT 45CC/HR. HOB ELEVATED. SEIZURE PRECAUTIONS IMPLEMENTED. IV TO RIGHT AND LEFT HAND PATENT AND INTACT. BED IN LOW/LOCKED POSITION WITH CALL LIGHT IN REACH. SIDE RAILS UP X3. BED ALARM ON FOR SAFETY. SHEILA HUGGER IN PLACE. WILL CONTINUE TO MONITOR
[2018-10-24 20:00] VITALS: BP 107/61
--- NOTE | 2018-10-24 20:09 | NUR ---
TELE/RN NOTES PT NOTED WITH FACIAL TWITCHING AND EXTREMITY TREMORS LASTING APPROX 30SEC. ADMINISTERED PRN ATIVAN. AFTER ADMINISTRATION OF ATIVAN, PT HAD X1 EPISODE OF ONLY FACIAL TWITCHING LASTING FOR ABOUT 10SEC. MARINE ANIMAL TRAINER AWARE AND SAW PT. WILL CONTINUE TO MONITOR CLOSELY
[2018-10-24] MEDS: SENNOSIDES 8.6 MG TABLET GT SCH (21:07)
[2018-10-24] MEDS: ATORVASTATIN 10 MG TABLET GT SCH (21:07)
[2018-10-24] MEDS: LEVETIRACETAM SOL (5 ML) 100 MG/ML UDC GT SCH (21:07)
[2018-10-25] VITALS: BP 106/60
[2018-10-25] MEDS: ALBUTEROL FS 2.5 MG/3 ML VIAL.NEB NEB SCH ×4 (01:39→19:56)
[2018-10-25] MEDS: IPRATROPIUM NEB FS 0.5 MG/2.5 ML AMPUL.NEB NEB SCH ×4 (01:39→19:56)
[2018-10-25] MEDS: LORAZEPAM INJ 2 MG/ML VIAL IV PRN (01:43)
[2018-10-25] MEDS: JEVITY 1.2 CAL 1,000 ML BOTTLE GT PRN (01:49)
--- NOTE | 2018-10-25 02:45 | NUR ---
TELE/RN NOTES PT NOTED WITH ANOTHER EPISODE OF BODY JERKS CONSISTENTLY FOR APPROX. ONE MINUTE. ADMINISTERED PRN ATIVAN. BODY JERKING SUBSIDES AND THEN PICKS BACK UP FOR ANOTHER 2MINS APPROX. SECURITY DISPATCHER AT BEDSIDE. NURSING AEROPLANE PILOT MAKING HER ROUNDS AND ASKED TO SEE THE PATIENT WELL. VITAL SIGNS STABLE, BP 136/86, HR 76, SPO2 100%. WILL CONTINUE TO CLOSELY MONITOR PT.
--- NOTE | 2018-10-25 03:39 | NUR ---
TELE/RN NOTES PT APPEARS VERY CALM. NO BODY TREMORS/JERKING OR FACIAL TWITCHING NOTED AT THIS TIME. WILL CONTINUE TO MONITOR
[2018-10-25 04:00] VITALS: BP 127/76
[2018-10-25] MEDS: VALPROIC ACID 250 MG/5 ML UDC GT SCH ×3 (04:12→21:14)
--- NOTE | 2018-10-25 06:51 | NUR ---
TELE/RN CLOSING NOTES PT RESTING COMFORTABLY IN BED. OBTUNDED. VENT SETTINGS MAINTAINED DURING SHIFT. SUCTIONED PRN. BREATHING EVEN AND UNLABORED. NO S/S OF SOB, PAIN OR ACUTE RESPIRATORY DISTRESS. ON TELE MONITOR SHOWING SR 60'S. NO FURTHER EPISODES OF FACIAL TWITCHING OR BODY TREMORS/JERKING SINCE 0145 DOSE OF ATIVAN. IV TO RIGHT AND LEFT HAND PATENT AND INTACT. GT FEEDING RUNNING ORDERED, NO RESIDUALS NOTED. REMAINS ON COOLING BLANKET TO REGULATE TEMPERATURE. VITAL SIGNS STABLE DURING SHIFT. BED IN LOW/LOCKED POSITION WITH CALL LIGHT IN REACH. HOB ELEVATED. SIDE RAILS UP X3 AND BED ALARM ON FOR SAFETY. WILL ENDORSE TO DAY SHIFT RN CLAUDIA.
--- NOTE | 2018-10-25 07:30 | NUR ---
RN NOTES RECEIVED PATIENT IN BED, NOT ON ANY FORM OF DISTRESS. NO ACUTE CHANGES NOTED AT THIS TIME.WILL CONTINUE TO MONITOR AND ANTICIPATE NEEDS
[2018-10-25 08:00] VITALS: BP 136/95
[2018-10-25] MEDS: LEVETIRACETAM SOL (5 ML) 100 MG/ML UDC GT SCH ×2 (09:09→21:14)
[2018-10-25] MEDS: FINASTERIDE (5 MG) 5 MG TABLET GT SCH (09:09)
[2018-10-25] MEDS: PANTOPRAZOLE 40 MG/PACK PACK GT SCH (09:09)
[2018-10-25] MEDS: FUROSEMIDE 20 MG TABLET GT SCH (09:09)
[2018-10-25] MEDS: BENAZEPRIL HCL 10 MG TABLET GT SCH (09:10)
--- NOTE | 2018-10-25 10:00 | NUR ---
RN NOTES DR. LEDBETTER SPOKE TO DR LOWERY, THEN LATER WITH ORDERS FOR STAT EEG. ORDER NOTED AND CARRIED OUT
[2018-10-25 12:00] VITALS: BP_SYST 124; BP_SYST 136; BP_DIAS 78; BP_DIAS 95
[2018-10-25] MEDS: Z GUARD REMEDY 2 OZ OINT TP SCH ×2 (12:32→21:15)
[2018-10-25 16:00] VITALS: BP 138/88
[2018-10-25] MEDS: PROSOURCE / PROSTAT (PYXIS) 30 ML UDC GT SCH (16:27)
--- NOTE | 2018-10-25 19:10 | NUR ---
CUSTOMER INSIGHT ANALYST NOTE PATIENT IS RESTING WITH HOB ELEVATED, NON VERBAL, TRACH TO VENT ON SETTINGS ORDERED, NO S/SX OF CARDIAC OR RESPIRATORY DISTRESS, SR ON TELE, JEVITY AT 45 ML /HR, NO RESIDUAL NOTED, R HAND #22G AND L HAND #20G BOTH PATENT AND FLUSHING, SKIN KEPT CLEAN AND DRY, SAFETY MAINTAINED AT ALL TIMES, BED IN LOW LOCKED POSITION, WILL CONTINUE TO MONITOR FOR ANY CHANGES.
--- NOTE | 2018-10-25 19:31 | NUR ---
RN NOTES ENDORSED PATIENT FOR CONTINUITY OF CARE. NO ACUTE CHANGES WITHIN THIS SHIFT. NOT ON ANY FORM OF DISTRESS.PATIENT WITH 2 EPISODE OF FACIAL TWITCHING THAT LASTED FOR 10-15 MINUTES WITHIN THE SHIFT. DR. LEDBETTER AWARE. ALL NURSING NEEDS ATTENDED AND MET. SAFETY MEASURES AND ASPIRATION PRECAUTION IN PLACE AT ALL TIMES. CALL LIGHT WITHIN REACH
--- NOTE | 2018-10-25 19:49 | NUR ---
RN NOTES SEEN AND EXAMINED BY DR. PEÑA, WITH ORDER TO INCREASE PRN ATIVAN INJECTION TO 1MG FROM 0.5 WITH THE SAME FREQUENCY. ORDER NOTED AND CARRIED OUT
[2018-10-25 20:00] VITALS: BP 136/83
[2018-10-25] MEDS ORDERED: LORAZEPAM INJ 2 MG/ML VIAL IV PRN (20:00)
[2018-10-25] MEDS: ATORVASTATIN 10 MG TABLET GT SCH (21:14)
[2018-10-25] MEDS: SENNOSIDES 8.6 MG TABLET GT SCH (21:14)
[2018-10-26] VITALS: BP 117/71
[2018-10-26] MEDS: ALBUTEROL FS 2.5 MG/3 ML VIAL.NEB NEB SCH ×4 (01:57→20:02)
[2018-10-26] MEDS: IPRATROPIUM NEB FS 0.5 MG/2.5 ML AMPUL.NEB NEB SCH ×4 (01:57→20:02)
[2018-10-26] MEDS: JEVITY 1.2 CAL 1,000 ML BOTTLE GT PRN (03:08)
[2018-10-26 04:00] VITALS: BP_SYST 138; BP_SYST 142; BP_DIAS 88
[2018-10-26] MEDS: VALPROIC ACID 250 MG/5 ML UDC GT SCH ×3 (04:31→21:04)
--- NOTE | 2018-10-26 07:44 | NUR ---
WOUND CARE CONSULT WOUND CARE RECEIVED CONSULT FOR FOOT WOUND. WOUND CARE WILL DEFER CONSULT AND ALL TREATMENT PLANS TO PLASTIC SURGICAL TEAM INCLUDING DPM DR PARKER WHO ARE CURRENTLY FOLLOWING THIS PATIENT. PATIENT WITH LAVELL AT 9, ALL PRESSURE ULCER PREVENTION MEASURES ARE NOTED TO BE IN PLACE AT THIS TIME. WILL SEE PRN.
[2018-10-26 08:00] VITALS: BP 137/82
--- NOTE | 2018-10-26 08:00 | NUR ---
TELE1/RN AM SHIFT INITIAL NOTES RECEIVED PT AWAKE IN BED, PT NON-VERBAL, OPEN EYES SPONTANEOUSLY. NO NOTED ACUTE SEIZURE INCIDENT AT THIS TIME, NO ACUTE CHANGE OF CONDITION NOTED. PT VENT DEPENDENT, RATE SET PRESCRIBED SATURATING @ 100%, LUNG SOUNDS, CLEAR, RESPIRATIONS EVEN & UNLABORED. SUCTIONED FOR AIRWAY CLEARANCE. ON TELE WITH SINUS LARA, HR 59. IV SITES, FLUSHED, PATENT WITH NO S/S OF INFECTION, SL. ON GOING GTF @ 45CC/HR, NO GASTRIC RESIDUAL NOTED, FLUSHED, PATENT. CONDOM CATHETER INTACT NOTED WITH YELLOW URINE OUTPUT. BED RAILS PADDED. PT IS COMFORTABLE, SCHEDULED AM MEDS TO BE GIVEN. CL WITHIN REACHED, SAFETY MAINTAINED AND SEIZURE PRECAUTION OBSERVED. ON GOING MONITORING.
[2018-10-26] MEDS: PANTOPRAZOLE 40 MG/PACK PACK GT SCH (09:41)
[2018-10-26] MEDS: LEVETIRACETAM SOL (5 ML) 100 MG/ML UDC GT SCH ×2 (09:41→21:04)
[2018-10-26] MEDS: FUROSEMIDE 20 MG TABLET GT SCH (09:41)
[2018-10-26] MEDS: FINASTERIDE (5 MG) 5 MG TABLET GT SCH (09:41)
[2018-10-26] MEDS: BENAZEPRIL HCL 10 MG TABLET GT SCH (09:41)
[2018-10-26] MEDS: Z GUARD REMEDY 2 OZ OINT TP SCH ×2 (09:42→21:04)
[2018-10-26] MEDS ORDERED: VALPROIC ACID 250 MG/5 ML UDC GT ONE (10:30)
--- NOTE | 2018-10-26 10:30 | NUR ---
TELE1/RN NEW ORDER - DR. NOVAK RECEIVED A CALL FROM DR. LOWERY, UPDATED PT'S CONDITION. NOTIFIED MD THAT I NOTICED THAT PT HAS A LITTLE FACIAL TWITCHING EARLIER THIS MORNING. REVIEWED THE CURRENT DOSAGE OF VALPROIC ACID WITH MD. WITH NEW T.O ORDER RECEIVED TO GIVE PT VALPROIC ACID 500MG VIA GT ONCE. ORDER NOTED AND TO BE CARRIED.
[2018-10-26 12:00] VITALS: BP 130/74
[2018-10-26 16:00] VITALS: BP 143/81
[2018-10-26 16:52] LABS: ABG BASE EXCESS 8.4 mmol/L; ABG OXYGEN SATURATION 98.7 % (92.0-98.5); ABG PCO2 50.6 mmHg (35.0-45.0); ABG PH 7.439 (7.350-7.450); ABG PO2 138.2 mmHg (75.0-100.0); AaDO2 88.8 mmHg; COHb 1.2 % (0.5-1.5); MetHb 0.8 % (0.0-1.5); O2Hb 96.7 % (94.0-97.0); SITE, ABG Left Radial; VENT MODE, BG AC 16 550 40% +5
[2018-10-26] MEDS: PROSOURCE / PROSTAT (PYXIS) 30 ML UDC GT SCH (17:32)
--- NOTE | 2018-10-26 19:38 | NUR ---
SECTION FOREST FIRE WARDEN NOTE: RECEIVED PT ON BED WITH NO APPARENT DISTRESS NOTED. NO FACIAL GRIMACING OR ANY SIGNS OF PAIN NOTED. NO SEIZURE NOTED AT THIS TIME. ON [facility] VENT, SETTINGS ORDERED. NO SOB NOTED. ON TELE MONITOR SINUS LARA HR 55BPM. CONDOM CATH INTACT AND PATENT, DRAINING WELL. GT INTACT AND PATENT, NO RESIDUAL NOTED AT THIS TIME. ABLE TO TOLERATE FEEDING WELL. KEPT CLEAN, DRY AND COMFORTABLE. SAFETY AND FALL PRECAUTIONS OBSERVED AND MAINTAINED. WILL CONTINUE TO MONITOR PT.
[2018-10-26 20:00] VITALS: BP 156/71
[2018-10-26] MEDS: ATORVASTATIN 10 MG TABLET GT SCH (21:04)
[2018-10-26] MEDS: SENNOSIDES 8.6 MG TABLET GT SCH (21:04)
[2018-10-27] VITALS: BP 139/75
[2018-10-27] MEDS: JEVITY 1.2 CAL 1,000 ML BOTTLE GT PRN (01:21)
[2018-10-27 01:46] LABS: APPEARANCE,URINE SL CLOUDY (CLEAR); BILIRUBIN,URINE NEGATIVE (NEGATIVE); BLOOD, URINE NEGATIVE Ery/uL (NEGATIVE); COLOR,URINE YELLOW (YELLOW); KETONES,URINE TRACE (NEGATIVE); LEUKOCYTE ESTERASE ,URINE NEGATIVE (NEGATIVE); NITRITE, URINE NEGATIVE (NEGATIVE); PROTEIN,URINE TRACE mg/dl (NEGATIVE); UGLUCOSE NEGATIVE (NEGATIVE)
[2018-10-27] MEDS: ALBUTEROL FS 2.5 MG/3 ML VIAL.NEB NEB SCH ×3 (01:58→13:19)
[2018-10-27] MEDS: IPRATROPIUM NEB FS 0.5 MG/2.5 ML AMPUL.NEB NEB SCH ×3 (01:58→13:19)
[2018-10-27 02:02] LABS: BACTERIA,URINE Many /HPF (None Seen); RBC,URINE 0-2 /HPF (0-2); SQUAMOUS EPITHELIAL CELL,UR Rare /HPF (None Seen)
[2018-10-27 04:00] VITALS: BP 136/65
[2018-10-27] MEDS: VALPROIC ACID 250 MG/5 ML UDC GT SCH ×2 (04:56→12:10)
--- NOTE | 2018-10-27 06:29 | NUR ---
TOWER SUPERVISOR NOTE: NO CHANGES NOTED THROUGHOUT THE SHIFT. NO APPARENT DISTRESS NOTED. NO FACIAL GRIMACING OR ANY SIGNS OF PAIN NOTED. SINUS RHYTHM ON TELE MONITOR HR 60 BPM. IV ON LEFT HAND #20 AND RIGHT HAND #22 INTACT AND PATENT, FLUSHING WELL. CONDOM CATH INTACT, DRAINED A TOTAL OF 700ML URINE OUTPUT. KEPT CLEAN, DRY AND COMFORTABLE. SAFETY AND FALL PRECAUTIONS OBSERVED AND MAINTAINED. WILL ENDORSE TO DAY SHIFT RN FOR CONTINUITY OF CARE.
[2018-10-27 08:00] VITALS: BP 145/95
--- NOTE | 2018-10-27 08:00 | NUR ---
TELE1/RN AM SHIFT INITIAL NOTES RECEIVED PT ASLEEP IN BED, PT NON-VERBAL, OPEN EYES SPONTANEOUSLY. NO SEIZURE NOTED OR ACUTE CHANGE OF CONDITION AT THIS TIME. PT VENT DEPENDENT, RATE SET PRESCRIBED SATURATING @ 100%, LUNG SOUNDS, CLEAR, RESPIRATIONS EVEN & UNLABORED. SUCTIONED FOR AIRWAY CLEARANCE. ON TELE WITH SINUS RHYTHM, HR 60. IV SITES, FLUSHED, PATENT WITH NO S/S OF INFECTION, SL. ON GOING GTF @ 45CC/HR, NO GASTRIC RESIDUAL NOTED, FLUSHED, PATENT. CONDOM CATHETER INTACT NOTED WITH YELLOW URINE OUTPUT. PT IS COMFORTABLE, SCHEDULED AM MEDS TO BE GIVEN. CL WITHIN REACHED, SAFETY MAINTAINED AND SEIZURE PRECAUTION OBSERVED. ON GOING MONITORING.
[2018-10-27] MEDS: LEVETIRACETAM SOL (5 ML) 100 MG/ML UDC GT SCH (08:33)
[2018-10-27] MEDS: PANTOPRAZOLE 40 MG/PACK PACK GT SCH (08:34)
[2018-10-27] MEDS: FINASTERIDE (5 MG) 5 MG TABLET GT SCH (08:34)
[2018-10-27] MEDS: FUROSEMIDE 20 MG TABLET GT SCH (08:34)
[2018-10-27] MEDS: BENAZEPRIL HCL 10 MG TABLET GT SCH (08:34)
[2018-10-27] MEDS: Z GUARD REMEDY 2 OZ OINT TP SCH (08:34)
[2018-10-27 12:00] VITALS: BP_SYST 141; BP_DIAS 53; BP_DIAS 77
--- NOTE | 2018-10-27 12:27 | NUR ---
TELE1/RN ROUNDS - DR. MARIANA PEÑA (COVERING FOR DR. GALLEGOS) EXAMINED PT, NOTIFIED HIM THAT THE PT IS BEING DISCHARGE BACK TO SNF. REVIEWED DISCHARGE ORDERS. NO NEW ORDERS RECEIVED.
--- NOTE | 2018-10-27 12:38 | NUR ---
TELE1/RN REPORT TO ([facility]) REPORT GIVEN TO RIAN PAULSON LVN. PT IS EXPECTED TO BE PICKED UP FOR TRANSPORT @ 1500.
--- NOTE | 2018-10-27 15:30 | NUR ---
TELE1/SOLAR ELECTRIC INSTALLER - SNF DISCHARGE REPORT GIVEN TO TRANSPORT PERSONNEL. DISCHARGE DOCUMENTS GIVEN TO TRANSPORT PERSONNEL. ID BAND REMOVED, IV SITES REMOVED, PRESSURE DRESSING APPLIED, NO S/S OF INFECTION. PT HAS NO PERSONAL BELONGINGS, INVENTORY LOG SIGNED OFF. PT LEFT IN STABLE CONDITION VIA RNEY.
--- NOTE | 2018-10-29 08:06 | NUR ---
ECHO REPORT IS DONE AWAITING FOR REPORT TO CROSS OVER TO [facility].
== END 2018-10-27 15:30 | DRG 53 ==
LOC: ER 17:38 → TELE1 22:08
PROVIDERS: ADMIT Internal Medicine; ATTEND Internal Medicine
PROC: 5A1945Z Respiratory Ventilation, 24-96 Consecutive Hours (ICD-10-PCS; principal; 2018-10-23)
DX: G40.409 Other generalized epilepsy and epileptic syndromes, not intractable, without status epilepticus (principal); Z99.11 Dependence on respirator [ventilator] status; G93.40 Encephalopathy, unspecified; J90 Pleural effusion, not elsewhere classified; J96.10 Chronic respiratory failure, unspecified whether with hypoxia or hypercapnia; R53.2 Functional quadriplegia; Z93.0 Tracheostomy status; I69.351 Hemiplegia and hemiparesis following cerebral infarction affecting right dominant side; E78.5 Hyperlipidemia, unspecified; Z93.1 Gastrostomy status; N40.0 Benign prostatic hyperplasia without lower urinary tract symptoms; R13.10 Dysphagia, unspecified; I25.2 Old myocardial infarction; Z86.718 Personal history of other venous thrombosis and embolism; Z88.1 Allergy status to other antibiotic agents; K21.9 Gastro-esophageal reflux disease without esophagitis; Z79.899 Other long term (current) drug therapy; F03.90 Unspecified dementia, unspecified severity, without behavioral disturbance, psychotic disturbance, mood disturbance, and anxiety; Z79.51 Long term (current) use of inhaled steroids; I42.9 Cardiomyopathy, unspecified; Z98.890 Other specified postprocedural states; M62.472 Contracture of muscle, left ankle and foot; M62.471 Contracture of muscle, right ankle and foot; J98.11 Atelectasis; I10 Essential (primary) hypertension; I73.9 Peripheral vascular disease, unspecified; J32.2 Chronic ethmoidal sinusitis; D63.8 Anemia in other chronic diseases classified elsewhere
CPT/HCPCS: 31720; 36415; 36600; 70450-TC; 71045-TC; 80048-TC; 80156-TC; 80164-TC; 80177; 81000-TC; 82803-TC; 85025-TC; 85730-TC; 87070-TC; 87081-TC; 87086-TC; 93307-TC; 94002-TC; 94003-TC; 94760-TC; 94761-TC; 94762-TC; 95819-TC; 99082-TC; A4349; A6403; G0378; J1953; J2060; J7030